=== PATIENT | male | born 1970 ===

== ENCOUNTER → 2020-05-20 10:34 | Outpatient (REF) | payer OTHER, SELFPAY ==
--- NOTE | 2020-05-20 10:36 | CA_ITS ---
Transthoracic Echocardiogram Patient (Last, First, Middle): Carlos Trujillo A Gender: Male Date of : 1970 Age: 50 Procedure Date: 05/20/2020 Procedure Type: Transthoracic Echocardiogram Location: OP Height: 160.02 cm Weight: 63.5 kg BSA: 1.66 m2 Heart Rate: bpm BP: 122 / 92 mmHg Environmental Restoration Planner: [place] Referring MD: Trevon Diez MD Symptoms: E78.00 - Pure hypercholesterolemia, unspecified Study Quality: Fair ECG Rhythm: Sinus Conclusions: - The left ventricular systolic function is normal. The visually estimated ejection fraction is between 55-60%. - No obvious valvular pathology seen on this study. Findings Left Ventricle Normal left ventricular cavity size. There is normal left ventricular wall thickness. The left ventricular systolic function is normal. The visually estimated ejection fraction is between 55-60%. There is no evidence of regional wall motion abnormalities. Diastolic function is normal for age. Right Ventricle Normal right ventricular cavity size and systolic function. Atria Both atria are normal in size. Aortic Valve There is a normal trileaflet aortic valve. There is no aortic valve stenosis. There is no aortic valve regurgitation. Mitral Valve The mitral valve appears normal. There is trace mitral valve regurgitation. There is no mitral valve stenosis. Pulmonic Valve The pulmonic valve was not well visualized. Tricuspid Valve Normal tricuspid valve structure. There is trace tricuspid valve regurgitation. The pulmonary artery systolic pressure is normal. Great Vessels The aortic annulus, sinuses of valsalva, and asc aorta are normal in size. Venous The inferior vena cava is normal in size and collapses greater than 50% with inspiration. Pericardium/Pleural There is no evidence of pericardial effusion. Prior Study Comparison No prior study available for comparison. Recommendations, Care & Conclusions No obvious valvular pathology seen on this study. Measurements M-Mode Liner Measurements Normals - Women/Men AOV Cusps: 2.30 1.5-2.6 cm/m2 2D Linear Measurements IVSd: 0.82 0.6-0.9/0.6-1.0 cm LVIDd: 4.33 3.9-5.3/4.2-5.9 cm LVIDd Index: 2.61 2.4-3.2/2.2-3.1 cm/m2 LVIDs: 2.97 2.0-3.6 cm LVPWd: 0.85 0.7-1.1 cm Ao Root: 2.60 2.1-3.5 cm LA Diam: 2.60 2.7-3.8/3.0-4.0 cm LAIDs Index: 1.57 1.5-2.3 cm/m2 LV Mass: 140.55 67-162/88-224 g LV Mass Index: 84.67 43-95/49-115 g/m2 LVOT Diam: 1.90 3.0+(-)1.3 cm 2D Systolic Function EF 4C: 58.60 >55% EF 2C: 62.00 >55% EF BiP: 59.90 >55% Mitral Valve MV Pk E: 0.78 MV PK A: 0.75 MV Decel Time: 224.00 E/A: 1.00 E'Lateral: 8.92 E'Medial: 7.29 E/E' Med: 10.80 E/E' Lat: 8.80 PHT: 66.00 MVA PHT: 3.33 Decel [place]: 3.53 Aortic Valve AoV Pk Compa: 1.18 AoV Pk Grad: 6.00 LVOT LVOT Pk Compa: 0.94 LVOT Mn Compa: 0.67 LVOT VTI: 0.19 LVOT Pk Grad: 4.00 LVOT Mn Grad: 2.00 LVOT Diam: 1.90 LVOT Area: 2.84 Diastolic Function MV Pk E: 0.78 MV Pk A: 0.75 E/A: 1.00 E'Medial: 7.29 E/E' Med: 10.80 E' Laterial: 8.92 E/E' Lat: 8.80 Great Vessels Aorta Ao Root-2D: 2.60 2.0-3.7 cm Ao Asc: 2.70 2.1-3.4 cm Ao Arch: 2.50 Pulmonary Valve PV Pk Compa: 0.81 Peak PV Grad: 3.00 Updated in Other Vendor System with Status of Final Warner Ribera MD electronically signed on 05/20/2020 2:05:52 PM with status of Final
== END ==
LOC: HO.CARD 10:34
PROVIDERS: PCP Internal Medicine; Visit Provider Internal Medicine
DX: E78.00 Pure hypercholesterolemia, unspecified (principal)
CPT/HCPCS: 93306

== ENCOUNTER 2021-05-09 08:06 | Outpatient (REF) | payer OTHER, SELFPAY ==
[2021-05-09 08:34] LABS: MANUAL DIFF FLAG NO
[2021-05-09 09:08] LABS: Basophils Percent Auto 0.4 % (0-2); Eosinophils Absolute Auto 0.1 X10*3/uL (0.0-0.4); Eosinophils Percent Auto 1.3 % (0-4); Hematocrit 46.5 % (42.0-52.0); Hemoglobin 15.6 g/dl (14.0-18.0); Imm Gran Abs Auto 0.01 X10*3/uL (0.00-0.03); Imm Gran Pct Auto 0.2 % (0.0-0.4); Lymphocytes Absolute Auto 1.9 X10*3/uL (1.2-4.9); Lymphocytes Percent Auto 35.2 % (20-40); Mean Corpuscular HGB Conc 33.5 g/dl (31.0-36.0); Mean Corpuscular Hemoglobin 29.9 pg (27.0-33.0); Mean Corpuscular Volume 89.3 fL (80.0-98.0); Mean Platelet Volume 11.6 fL (9.4-12.4); Monocytes Absolute Auto 0.8 X10*3/uL (0.1-1.2); Monocytes Percent Auto 14.2 % (2-11); Neutrophils Absolute Auto 2.6 x10*3/uL (2.0-8.3); Neutrophils Percent Auto 48.7 % (45-73); Platelet Count 189 X10*3/uL (160-400); Red Blood Count 5.21 X10*6/uL (4.60-5.80); Red Cell Distribution Width 11.9 % (11.0-16.0); White Blood Count 5.3 X10*3/uL (4.8-10.8)
[2021-05-09 09:35] LABS: Alanine Aminotransferase 30 U/L (0-40); Albumin Level 4.5 g/dL (3.5-5.0); Alkaline Phosphatase 86 U/L (39-117); Anion Gap 10 (12-20); Aspartate Amino Transferase 30 U/L (5-37); Bilirubin Total 0.8 mg/dL (0.0-1.0); Blood Urea Nitrogen 21 mg/dL (9-16); Calcium 9.8 mg/dL (8.4-10.2); Carbon Dioxide 29 mmol/L (22-29); Chloride 105 mmol/L (96-108); Cholesterol 270 mg/dL; Estimated Glomerular Filt Rate > 60; Glucose Random 96 mg/dL (60-115); HDL Cholesterol 48 mg/dL; LDL Cholesterol Calculated 193 mg/dl; Potassium 4.7 mmol/L (3.3-5.1); Sodium 139 mmol/L (135-145); Triglycerides 146 mg/dL
[2021-05-09 09:58] LABS: Free T4 (Free Thyroxine) 0.83 ng/dL (0.71-1.85); Prostate Specific Antigen Scr 0.47 ng/mL (<0.05-4.0); Thyroid Stimulating Hormone 1.07 uIU/mL (0.32-4.0); Vitamin D 25-OH Total 38.5 ng/mL (>30)
[2021-05-09 10:37] LABS: Folate > 20.0 ng/mL (> or = 4.0); Vitamin B12 703 pg/mL (200-900)
[2021-05-10 06:32] LABS: Follicle Stimulating Hormone 4.7 mIU/mL (1.6-8.0); Lutenizing Hormone 3.6 mIU/mL (1.5-9.3); Prolactin 5.7 ng/mL (2.0-18.0)
[2021-05-17 12:56] LABS: Testosterone, Total 800 ng/dL (250-1100)
== END 2021-05-09 08:07 | disposition home or self-care (01) ==
LOC: HO.LAB 08:06
PROVIDERS: PCP Internal Medicine; Visit Provider Internal Medicine
DX: E78.00 Pure hypercholesterolemia, unspecified (principal); M81.0 Age-related osteoporosis without current pathological fracture; Z12.5 Encounter for screening for malignant neoplasm of prostate
CPT/HCPCS: 36415; 80053; 80061; 82306; 82607; 82746; 83001; 83002; 84146; 84153; 84403; 84439; 84443; 85025

== ENCOUNTER 2021-06-03 09:41 | Outpatient (REF) | payer OTHER, SELFPAY ==
[2021-06-06 11:42] LABS: Mumps Virus IgM Antibody <1:20 titer
== END 2021-06-03 09:42 | disposition home or self-care (01) ==
LOC: HO.LAB 09:41
PROVIDERS: PCP Internal Medicine; Visit Provider Nurse Practitioner Family
DX: R22.0 Localized swelling, mass and lump, head (principal)
CPT/HCPCS: 36415; 86735

== ENCOUNTER 2023-04-28 12:33 | Outpatient (AMB) | payer OTHER, SELFPAY ==
[2023-04-28 12:32] VITALS: BP 132/90; PULSE 68; O2SAT 97; BMI 26.4
--- NOTE | 2023-04-28 12:32 | A.OFFPC_ITS ---
Vital Signs 04/28/23 12:32 04/28/23 12:43 Height 5 ft 3 in Weight 149 lb 0.4 oz BMI 26.4 BP 132/90 H 130/90 H Blood Pressure Location Lt brachial Lt brachial Position Sitting Sitting Pulse 68 Pulse Source Pulse Oximeter Pulse Oximetry (%) 97 Oxygen Delivery Method Room Air Intake Visit Reasons: Physical Property Field Adjuster Required: No Allergies No Known Allergies Allergy (Verified 04/28/23 12:33) Medication List - Last Reconciled 04/28/23 by Trevon Diez MD cholecalciferol (vitamin D3) 50 mcg PO DAILY magnesium 200 mg PO DAILY multivitamin 1 tab PO DAILY pterostilbene 100 mg PO .QD sildenafil (Viagra) 50 mg PO DAILY PRN 30 days valacyclovir 2,000 mg PO B.i.d. or as directed; 4 days Tobacco use date assessed: 04/28/23 Dental Screening Dental Screen Date: 04/28/23 Did you have a dental visit in the last 12 months?: Yes Did you have a dental problem in the last 6 months where you did not have access to dental care?: No Was dental information given to patient?: Patient has dentist HPI Physical HPI Details 53-year-old male with a history of osteo porosis hypercholesterolemia coming in for an annual physical [facility] Medical History Hypercholesterolemia Nose fracture Surgical History Ankle fracture, right H/O left inguinal hernia repair Family History Father Melanoma Myocardial infarct Maternal Grandfather Myocardial infarct Social History (Updated 04/28/23 @ 12:51 by Trevon Diez MD) Housing: House Alcohol intake: current Comment: 2 days weekend 5-6 a day Patient Tobacco Use Status: Never used Tobacco e-Cigarette/Vaping Use: Never Used Second Hand Smoke Exposure: No Current occupational status: employed Cognitive needs: No Hearing needs: No Vision needs: No Questionnaire PHQ-9 Over the last 2 weeks, how often have you been bothered by any of the following problems? 1. Little interest or pleasure in doing things: not at all 2. Feeling down, depressed, or hopeless: not at all 3. Trouble falling or staying asleep, or sleeping too much: not at all 4. Feeling tired or having little energy: not at all 5. Poor appetite or overeating: not at all 6. Feeling bad about yourself - or that you are a failure or have let yourself or your family down: not at all 7. Trouble concentrating on things, such as reading the newspaper or watching television: not at all 8. Moving or speaking so slowly that other people could have noticed. Or the opposite - being so fidgety or restless that you have been moving around a lot more than usual: not at all 9. Thoughts that you would be better off or of hurting yourself in some way: not at all Total score: 0 Depression Screening Interpretation: Negative Depression Screening Done: Yes Source: Developed by Drs. Fantasma Barone, Kyara Caballero, Jusitn Murray and colleagues, with an educational genesis from [employer]. Thrive Questionnaire Date Thrive assessed: 04/28/23 AUDIT C Alcohol Use Questionnaire (AUDIT-C) 1. How often do you have a drink containing alcohol?: 2-3 times a week 2. How many drinks containing alcohol do you have on a typical day when you are drinking?: 5 or 6 3. How often do you have six or more drinks on one occasion?: Never Total Score: 5 Score Reviewed/Action Taken: Yes LORRAINE-7 AMB Questionnaire LORRAINE-7 Date LORRAINE - 7 assessed: 04/28/23 Feeling nervous, anxious, or on edge: 0 = Not at all Not being able to stop or control worryin = Not at all Worrying too much about different things: 0 = Not at all Trouble relaxin = Not at all Being so restless that it is hard to sit still: 0 = Not at all Becoming easily annoyed or irritable: 0 = Not at all Feeling afraid as if something awful might happen: 0 = Not at all Total LORRAINE-7 score (0-4 normal; 5-9 mild; 10-14 moderate; 15-21 severe): 0 Source: Developed by Drs. Fantasma Barone, Kyara Caballero, Justin Murray and colleagues, with an educational genesis from [employer]. Review of Systems Const Denies poor appetite and Denies weakness Eyes Denies no additional complaints ENT Reports Normal hearing present, Denies dizziness, Denies nasal congestion, Denies tinnitus and Denies sore throat Card Denies chest pain, Denies syncope, Denies rapid heart rate and Denies dyspnea Resp Denies cough and Denies dyspnea GI Denies change in stool character, Reports constipation, Denies diarrhea, Denies nausea and Denies vomiting Denies dysuria and Denies urinary frequency Neuro Reports Normal hearing present, Denies confusion, Denies dizziness, Denies syncope and Denies weakness Psych Denies confusion Physical exam (Primary Care) Vital Signs: Oxygen Delivery Method Room Air 04/28/23 12:32 BMI result Body Mass Index 26.4 Tobacco/Smoking Status: Tobacco use Status Tobacco use date assessed 04/20/22 04/20/22 12:15 Patient Tobacco Use Status Never used Tobacco 04/20/22 11:37 e-Cigarette/Vaping Use Never Used 04/20/22 11:37 Depression Screening Interpretation: Negative Thrive Assessment: Date of Thrive Assessment Date Thrive assessed 04/20/22 04/20/22 12:15 Const General: No confusion Orientation/consciousness: No confusion HENMT Head: Yes normocephalic Ears: external ears normal and TM's normal bilaterally Face and sinus: Yes normal facial exam Mouth: moist mucous membranes Throat: Yes tonsils normal Eyes Conjunctivae: conjunctivae normal Pupils: Equal, round and reactive pupils present and Pupil accommodation reflex normal Direct Ophthalmoscopy: normal light reflex Neck Neck: No lymphadenopathy Thyroid: Thyroid normal Chest Chest palpation & inspection: normal inspection of the chest Resp Effort & Inspection: normal respiratory effort and no audible wheezes Auscultation: clear to auscultation bilaterally, no crackles, no wheezes and lung sounds not diminished Cardio Rate: regular rate Rhythm: regular rhythm Peripheral pulses: radial pulses present and dorsalis pedis present GI Other: guaiac neg prostate normal Palpation (GI): no masses Auscultation: normal bowel sounds and normoactive bowel sounds Male General Exam: Yes normal external exam Skin General skin exam: no rashes or lesions noted Rashes: no rashes Neuro General: No confusion Cranial nerves: Yes Equal, round and reactive pupils present and Yes Normal hearing present Cognition (Neuro): normal cognition Gait exam (Neuro): Normal gait present Motor exam (neuro): 5/5 motor strength present throughout Deep tendon reflexes (DTR's): Right brachioradialis reflex intensity grade: 2+, Left brachioradialis reflex intensity grade: 2+, Right patellar reflex intensity grade: 2+ and Left patellar reflex intensity grade: 2+ Extrem General: No edema Assessment and Plan Assessment & Plan (1) Annual physical exam: Code(s): Z00.00 - Encounter for general adult medical examination without abnormal findings (2) Osteoporosis: Code(s): M81.0 - Age-related osteoporosis without current pathological fracture Plan: Discussion about doing bone density to follow-up (3) Colon cancer screening: Code(s): Z12.11 - Encounter for screening for malignant neoplasm of colon Plan: Discussion about colon cancer screening . Cologuard sent (4) Hypercholesterolemia: Code(s): E78.00 - Pure hypercholesterolemia, unspecified Plan: Avoid fried foods, chicken skin, eggs, butter margarine, pastries and meat. Be it pork or beef they have a lot of cholesterol LDL goal of less than 130 and triglyceride of less than 150 (5) Blood pressure elevated without history of HTN: Code(s): R03.0 - Elevated blood-pressure reading, without diagnosis of hypertension Plan: monitor BP and record. Discussed my concerns about the blood pressure being elevated(diastolic) advised to monitor and record. Low-salt diet and continue to be active Orders: Orders XR DEXA axial skeleton Today M81.0 - Age-related osteoporosis without current pathological fracture Referrals Cologuard Test Z12.11 - Encounter for screening for malignant neoplasm of colon Coding Level of Care Code Est Pt Prev Care 40-64y([id number]) Diagnoses Annual physical exam Z00.00 Osteoporosis M81.0 Colon cancer screening Z12.11 Hypercholesterolemia E78.00 Blood pressure elevated without history of HTN R03.0 Additional Codes PHQ-9 - 65861 - PHQ-9 Billing: ([id number])
[2023-04-28 12:43] VITALS: BP 130/90
== END 2023-04-28 13:11 | disposition home or self-care (01) ==
PROVIDERS: PCP Internal Medicine; Visit Provider Internal Medicine
DX: Z00.00 Encounter for general adult medical examination without abnormal findings (principal); M81.0 Age-related osteoporosis without current pathological fracture; Z12.11 Encounter for screening for malignant neoplasm of colon; E78.00 Pure hypercholesterolemia, unspecified; R03.0 Elevated blood-pressure reading, without diagnosis of hypertension
CPT/HCPCS: 99396

== ENCOUNTER 2023-05-14 07:16 | Outpatient (REF) | payer OTHER, SELFPAY ==
[2023-05-14 07:48] LABS: MANUAL DIFF FLAG NO
[2023-05-14 08:22] LABS: Basophils Percent Auto 0.5 % (0-2); Eosinophils Absolute Auto 0.1 X10*3/uL (0.0-0.4); Eosinophils Percent Auto 2.3 % (0-4); Hematocrit 46.7 % (42.0-52.0); Hemoglobin 15.8 g/dl (14.0-18.0); Imm Gran Abs Auto 0.02 X10*3/uL (0.00-0.03); Imm Gran Pct Auto 0.3 % (0.0-0.4); Lymphocytes Absolute Auto 1.7 X10*3/uL (1.2-4.9); Lymphocytes Percent Auto 27.4 % (20-40); Mean Corpuscular HGB Conc 33.8 g/dl (31.0-36.0); Mean Corpuscular Hemoglobin 29.5 pg (27.0-33.0); Mean Corpuscular Volume 87.1 fL (80.0-98.0); Mean Platelet Volume 11.6 fL (9.4-12.4); Monocytes Absolute Auto 0.9 X10*3/uL (0.1-1.2); Monocytes Percent Auto 14.6 % (2-11); Neutrophils Absolute Auto 3.3 x10*3/uL (2.0-8.3); Neutrophils Percent Auto 54.9 % (45-73); Platelet Count 213 X10*3/uL (160-400); Red Blood Count 5.36 X10*6/uL (4.60-5.80)
[2023-05-14 08:57] LABS: Alanine Aminotransferase 28 U/L (0-40); Albumin Level 4.3 g/dL (3.5-5.0); Alkaline Phosphatase 85 U/L (39-117); Anion Gap 13 (12-20); Aspartate Amino Transferase 30 U/L (5-37); Bilirubin Total 0.5 mg/dL (0.0-1.0); Blood Urea Nitrogen 24 mg/dL (9-16); Calcium 9.5 mg/dL (8.4-10.2); Carbon Dioxide 27 mmol/L (22-29); Chloride 103 mmol/L (96-108); Cholesterol 269 mg/dL (<200); Estimated Glomerular Filt Rate > 60; Glucose Random 104 mg/dL (60-115); HDL Cholesterol 53 mg/dL (>40); LDL Cholesterol Calculated 190 mg/dL (<100); Magnesium 2.2 mg/dL (1.6-2.6); Potassium 4.4 mmol/L (3.3-5.1); Sodium 139 mmol/L (135-145); Total Protein 7.9 g/dL (6.5-8.0); Triglycerides 133 mg/dL (<150)
[2023-05-14 09:18] LABS: Free T4 (Free Thyroxine) 0.77 ng/dL (0.71-1.85); Prostate Specific Antigen Scr 0.54 ng/mL (<0.05-4.0); Vitamin B12 749 pg/mL (200-900); Vitamin D 25-OH Total 45.5 ng/mL (>30)
== END 2023-05-14 07:17 | disposition home or self-care (01) ==
LOC: HO.LAB 07:16
PROVIDERS: PCP Internal Medicine; Visit Provider Internal Medicine
DX: Z12.5 Encounter for screening for malignant neoplasm of prostate (principal); E78.00 Pure hypercholesterolemia, unspecified
CPT/HCPCS: 36415; 80053; 80061; 82306; 82607; 82746; 83735; 84153; 84439; 84443; 85025

== ENCOUNTER 2023-05-17 10:58 | Outpatient (REF) | payer OTHER, SELFPAY ==
--- NOTE | ~2023-05-17 | MM_ITS ---
EXAMINATION: BONE DENSITOMETRY CLINICAL INDICATION: Age-related osteoporosis without current pathological fracture. COMPARISON: Previous BD dated 12/29/2017 and baseline BD dated 12/12/2006. TECHNIQUE: Using a [employer] DXA System (software version: 13.1) manufactured by [employer], dual-energy x-ray absorptiometry was performed of the lumbar spine and left hip. The images are of good technical quality. Summary results are attached. FINDINGS: LEFT FEMUR, NECK: Current: BMD 0.823 g/cm2, Z-score -0.9, T-score -1.9, osteopenia. Prior: BMD 0.848 g/cm2. Baseline: BMD 0.852 g/cm2. LEFT FEMUR, TOTAL: Current: BMD 0.905 g/cm2, Z-score -0.8, T-score -1.4, osteopenia, 4.4% decrease from previous, 1.5% decrease from baseline (<5% change is not significant). Prior: BMD 0.947 g/cm2. Baseline: BMD 0.919 g/cm2. AP SPINE L1-L4: Current: BMD 0.907 g/cm2, Z-score -2.0, T-score -2.6, osteoporosis, 6.8% decrease from previous, 7.2% decrease from baseline (<5% change is not significant). Prior: BMD 0.973 g/cm2. Baseline: BMD 0.977 g/cm2. IDENTIFIED RISK FACTORS: History of fracture (adult). HISTORY OF FRACTURE: Other. MEDICATIONS: Multivitamin, vitamin D. MM/XR DEXA axial skeleton IMPRESSION: 1. DIAGNOSIS: Osteoporosis based on the lowest T-score value of -2.6 in the lumbar spine applying World Health Organization criteria. 2. 10-YEAR FRACTURE RISK PREDICTION, FRAX: According to the guidelines, FRAX calculation should only be performed on patients in the osteopenia bone density category. Therefore, FRAX was not performed on this patient. 3. Treatment Recommendations: NOF guidelines recommend consideration for treatment in postmenopausal women and men age 50 and older presenting with the following: -A hip or vertebral (clinical or morphometric) fracture. -T-score less than or equal to -2.5 at the femoral neck or spine after appropriate evaluation to exclude secondary causes. -Low bone mass at the hip or spine and a 10-year fracture probability by FRAX of greater than or equal to 3% for hip fracture or greater than or equal to 20% for major osteoporotic fracture based on the [place] adapted WHO algorithm. 4. Other Recommendations: All treatment decisions require clinical judgment and consideration of individual patient factors, including patient preferences, comorbidities, previous drug use, risk factors not captured in the FRAX model (e.g. frailty, falls, vitamin D deficiency, increased bone turnover, interval significant decline in bone density) and possible under or overestimation of fracture risk by FRAX. Additional medical evaluation for secondary cause of low bone mineral density may be appropriate. FUTURE SCAN RECOMMENDATION: People with diagnosed cases of osteoporosis or at high risk for fracture should have regular bone mineral density tests. For patients eligible for Medicare, routine testing is allowed once every 2 years. The testing frequency can be increased to one year for patients who have rapidly progressing disease, those who are receiving or discontinuing medical therapy to restore bone mass, or have additional risk factors.
== END 2023-05-17 10:59 | disposition home or self-care (01) ==
LOC: HO.MAMMO 10:58
PROVIDERS: PCP Internal Medicine; Visit Provider Internal Medicine
DX: Z13.820 Encounter for screening for osteoporosis (principal); M81.0 Age-related osteoporosis without current pathological fracture
CPT/HCPCS: 77080

== ENCOUNTER 2023-08-03 11:00 | Outpatient (AMB) | payer OTHER, SELFPAY ==
[2023-08-03 11:02] VITALS: BP 128/78; PULSE 67; O2SAT 98; BMI 25.9
--- NOTE | 2023-08-03 11:02 | A.OFFPC_ITS ---
Vital Signs 08/03/23 11:02 Height 5 ft 3 in Weight 146 lb BMI 25.9 BP 128/78 Blood Pressure Location Lt brachial Position Sitting Pulse 67 Pulse Source Pulse Oximeter Pulse Oximetry (%) 98 Oxygen Delivery Method Room Air Intake Visit Reasons: Elevated BP Allergies simvastatin Adverse Reaction (Intermediate, Verified 08/03/23 11:04) myalgia Tobacco use date assessed: 08/03/23 Dental Screening Dental Screen Date: 08/03/23 Did you have a dental visit in the last 12 months?: Yes Did you have a dental problem in the last 6 months where you did not have access to dental care?: No Was dental information given to patient?: Patient has dentist HPI Elevated BP HPI Details 53-year-old male with a history of osteo porosis hypercholesterolemia last seen in April 2023. Noted to have an elevated blood pressure is here for follow-up. Cologuard testing advised done in 06/08/2023-bone density done May 2023 showing osteoporosis with 6.8 decrease in the spine 4% decrease left femur PFSH Medical History (Updated 08/03/23 @ 11:14 by Treovn Diez MD) Colon cancer screening Nose fracture Hypercholesterolemia Surgical History Ankle fracture, right H/O left inguinal hernia repair Family History (Updated 08/03/23 @ 11:05 by Vidhya Romero CMA) Father Melanoma Myocardial infarct Maternal Grandfather Myocardial infarct Social History (Updated 04/28/23 @ 12:51 by Trevon Diez MD) Housing: House Alcohol intake: current Comment: 2 days weekend 5-6 a day Patient Tobacco Use Status: Never used Tobacco e-Cigarette/Vaping Use: Never Used Second Hand Smoke Exposure: No Current occupational status: employed Cognitive needs: No Hearing needs: No Vision needs: No Questionnaire PHQ-9 Over the last 2 weeks, how often have you been bothered by any of the following problems? 1. Little interest or pleasure in doing things: not at all 2. Feeling down, depressed, or hopeless: not at all 3. Trouble falling or staying asleep, or sleeping too much: not at all 4. Feeling tired or having little energy: not at all 5. Poor appetite or overeating: not at all 6. Feeling bad about yourself - or that you are a failure or have let yourself or your family down: not at all 7. Trouble concentrating on things, such as reading the newspaper or watching television: not at all 8. Moving or speaking so slowly that other people could have noticed. Or the opposite - being so fidgety or restless that you have been moving around a lot more than usual: not at all 9. Thoughts that you would be better off or of hurting yourself in some way: not at all Total score: 0 Depression Screening Interpretation: Negative Depression Screening Done: Yes Source: Developed by Drs. Fantasma Barone, Kyara Caballero, Justin Murray and colleagues, with an educational genesis from [email or web address]. Thrive Questionnaire Date Thrive assessed: 04/28/23 AUDIT C Alcohol Use Questionnaire (AUDIT-C) 1. How often do you have a drink containing alcohol?: 2-3 times a week 2. How many drinks containing alcohol do you have on a typical day when you are drinking?: 5 or 6 3. How often do you have six or more drinks on one occasion?: Never Total Score: 5 Score Reviewed/Action Taken: Yes LORRAINE-7 AMB Questionnaire LORRAINE-7 Date LORRAINE - 7 assessed: 04/28/23 Source: Developed by Drs. Fantasma Barone, Kyara Caballero, Justin Murray and colleagues, with an educational genesis from [email or web address]. Physical exam (Primary Care) Vital Signs: Last Vital Signs Pulse 67 08/03/23 11:02 BP 128/78 08/03/23 11:02 Pulse Ox 98 08/03/23 11:02 Oxygen Delivery Method Room Air 08/03/23 11:02 BMI result Body Mass Index 25.9 Tobacco/Smoking Status: Tobacco use Status Tobacco use date assessed 08/03/23 08/03/23 11:06 Patient Tobacco Use Status Never used Tobacco 08/03/23 11:06 e-Cigarette/Vaping Use Never Used 08/03/23 11:06 PHQ-9: PHQ-9 Score PHQ-9: Total score 0 08/03/23 11:06 Depression Screening Interpretation: Negative Thrive Assessment: Date of Thrive Assessment Date Thrive assessed 04/28/23 08/03/23 11:06 Const General: alert; No acute distress Eyes Conjunctivae: conjunctivae normal Resp Auscultation: clear to auscultation bilaterally Cardio Rate: regular rate Rhythm: regular rhythm GI Inspection: Yes normal to inspection Extrem General: Yes normal to inspection and No edema Assessment and Plan Assessment & Plan (1) Blood pressure elevated without history of HTN: Code(s): R03.0 - Elevated blood-pressure reading, without diagnosis of hypertension Plan: Retest blood pressure within normal limits (2) Impaired glucose tolerance: Code(s): R73.02 - Impaired glucose tolerance (oral) Plan: Decrease the amount of carbohydrate intake, pasta, bread, rice and potatoes are all sugar and that is aside from all the sweet stuff, remember that fruits are good but they are Sweet also. (3) Hypercholesterolemia: Code(s): E78.00 - Pure hypercholesterolemia, unspecified Plan: Avoid fried foods, chicken skin, eggs, butter margarine, pastries and meat. Be it pork or beef they have a lot of cholesterol LDL goal of less than 130 and triglyceride of less than 150. Patient can not tolerate simvastatin. Discussed on trying a different cholesterol medication and retesting in 3 months. (4) Osteoporosis: Comment: May 2023 Code(s): M81.0 - Age-related osteoporosis without current pathological fracture Plan: Discussed concerns about osteoporosis patient will be seeing endocrinology. Orders: Orders Lipid Panel Today E78.00 - Pure hypercholesterolemia, unspecified Hemoglobin A1c Today R73.02 - Impaired glucose tolerance (oral) Comprehensive Met. Panel Today E78.00 - Pure hypercholesterolemia, unspecified Parathyroid Hormone Intact 3 Months M81.0 - Age-related osteoporosis without current pathological fracture Calcium, Ionized 3 Months M81.0 - Age-related osteoporosis without current pathological fracture Medications: New rosuvastatin 5 mg PO DAILY 30 tabs 3RF E78.00 - Pure hypercholesterolemia, unspecified Coding Level of Care Code Est Pt Level 4 (46424) Diagnoses Blood pressure elevated without history of HTN R03.0 Impaired glucose tolerance R73.02 Hypercholesterolemia E78.00 Osteoporosis M81.0 Additional Codes PHQ-9 - 70113 - PHQ-9 Billing: ([id number])
== END 2023-08-03 11:28 | disposition home or self-care (01) ==
PROVIDERS: PCP Internal Medicine; Visit Provider Internal Medicine
DX: R03.0 Elevated blood-pressure reading, without diagnosis of hypertension (principal); R73.02 Impaired glucose tolerance (oral); E78.00 Pure hypercholesterolemia, unspecified; M81.0 Age-related osteoporosis without current pathological fracture
CPT/HCPCS: 99214

== ENCOUNTER 2023-09-13 11:16 | Outpatient (AMB) | payer OTHER, SELFPAY ==
[2023-09-13 11:18] VITALS: BP 128/68; PULSE 59; O2SAT 97; BMI 25.3
--- NOTE | 2023-09-13 11:18 | A.OFFPC_ITS ---
Vital Signs 09/13/23 11:18 Height 5 ft 3 in Weight 64.864 kg BMI 25.3 BP 128/68 Blood Pressure Location Lt brachial Position Sitting Pulse 59 Pulse Source Pulse Oximeter Pulse Oximetry (%) 97 Oxygen Delivery Method Room Air Intake Visit Reasons: Sinus Issues Allergies simvastatin Adverse Reaction (Intermediate, Verified 09/13/23 11:18) myalgia Tobacco use date assessed: 08/03/23 Dental Screening Dental Screen Date: 08/03/23 HPI Sinus Issues HPI Details 53-year-old male with a history of impai red glucose tolerance osteoporosis hypercholesterolemia. Last seen in 08/22/2023 noted to have an elevated blood pressure. Patient is here for an acute problem. 3 days am abd pain epigastric - no radiation. continuous, no fevers, no b/b sx.- no flank pain PFSH Medical History (Updated 09/13/23 @ 11:50 by Trevon Diez MD) Colon cancer screening Nose fracture Hypercholesterolemia Surgical History Ankle fracture, right H/O left inguinal hernia repair Family History (Updated 08/03/23 @ 11:05 by Vidhya Romero CMA) Father Melanoma Myocardial infarct Maternal Grandfather Myocardial infarct Social History (Updated 04/28/23 @ 12:51 by Trevon Diez MD) Housing: House Alcohol intake: current Comment: 2 days weekend 5-6 a day Patient Tobacco Use Status: Never used Tobacco e-Cigarette/Vaping Use: Never Used Second Hand Smoke Exposure: No Current occupational status: employed Cognitive needs: No Hearing needs: No Vision needs: No Questionnaire PHQ-9 Over the last 2 weeks, how often have you been bothered by any of the following problems? 1. Little interest or pleasure in doing things: not at all 2. Feeling down, depressed, or hopeless: not at all 3. Trouble falling or staying asleep, or sleeping too much: not at all 4. Feeling tired or having little energy: not at all 5. Poor appetite or overeating: not at all 6. Feeling bad about yourself - or that you are a failure or have let yourself or your family down: not at all 7. Trouble concentrating on things, such as reading the newspaper or watching television: not at all 8. Moving or speaking so slowly that other people could have noticed. Or the opposite - being so fidgety or restless that you have been moving around a lot more than usual: not at all 9. Thoughts that you would be better off or of hurting yourself in some way: not at all Total score: 0 Depression Screening Interpretation: Negative Depression Screening Done: Yes Source: Developed by Drs. Fantasma Barone, Kyara Caballero, Justin Murray and colleagues, with an educational genesis from [employer]. Thrive Questionnaire Date Thrive assessed: 04/28/23 AUDIT C Alcohol Use Questionnaire (AUDIT-C) 1. How often do you have a drink containing alcohol?: 2-3 times a week 2. How many drinks containing alcohol do you have on a typical day when you are drinking?: 5 or 6 3. How often do you have six or more drinks on one occasion?: Never Total Score: 5 Score Reviewed/Action Taken: Yes LORRAINE-7 AMB Questionnaire LORRAINE-7 Date LORRAINE - 7 assessed: 04/28/23 Source: Developed by Drs. Fantasma Barone, Kyara Caballero, Justin Murray and colleagues, with an educational genesis from [employer]. Physical exam (Primary Care) Vital Signs: Last Vital Signs Pulse 59 09/13/23 11:18 BP 128/68 09/13/23 11:18 Pulse Ox 97 09/13/23 11:18 Oxygen Delivery Method Room Air 09/13/23 11:18 BMI result Body Mass Index 25.3 Tobacco/Smoking Status: Tobacco use Status Tobacco use date assessed 08/03/23 09/13/23 11:22 Patient Tobacco Use Status Never used Tobacco 09/13/23 11:22 e-Cigarette/Vaping Use Never Used 09/13/23 11:22 PHQ-9: PHQ-9 Score PHQ-9: Total score 0 09/13/23 11:43 Depression Screening Interpretation: Negative Thrive Assessment: Date of Thrive Assessment Date Thrive assessed 04/28/23 09/13/23 11:22 Const General: alert; No acute distress Eyes Conjunctivae: conjunctivae normal Resp Auscultation: clear to auscultation bilaterally Cardio Rate: regular rate Rhythm: regular rhythm GI Other: vague LLQ pain with mild tenderness, mild rebound Extrem General: Yes normal to inspection and No edema Results AMB Urinalysis, Automated UA Leukoctes 0 Mavis/uL Last Edit by Vidhya Romero, [facility] on 09/13/23 12:00 UA Nitrite Negative Last Edit by Vidhya Romero, [facility] on 09/13/23 12:00 UA Urobilinogen 0.2 mg/dL Last Edit by Vidhya Romero, [facility] on 09/13/23 12:00 UA Protein 0 mg/dL Last Edit by Vidhya Romero, [facility] on 09/13/23 12:00 UA pH 6.0 Last Edit by Vidhya Romero, [facility] on 09/13/23 12:00 UA Blood 0 Marlon/uL Last Edit by Vidhya Romero, [facility] on 09/13/23 12:00 UA Specific [place] 1.025 Last Edit by Vidhya Romero, APRN on 09/13/23 12:00 UA Ketone Negative Last Edit by Vidhya Romero, [facility] on 09/13/23 12:00 UA Bilirubin 0 mg/dL Last Edit by Vidhya Romero, [facility] on 09/13/23 12:00 UA Glucose 0 mg/dL Last Edit by Vidhya Romero, [facility] on 09/13/23 12:00 Assessment and Plan Assessment & Plan (1) LLQ abdominal pain: Code(s): R10.32 - Left lower quadrant pain Plan: Urinalysis test negative for any blood. Discussed about diverticulitis treatment outpatient keep well hydrated if it is getting better no further treatment needed. If the pain is getting worse to call and send message and will send in antibiotic treatment for diverticulitis. Orders: Orders AMB Urinalysis Automated Today R10.32 - Left lower quadrant pain, Z13.9 - Encounter for screening, unspecified Coding Level of Care Code Est Pt Level 3 (76932) Diagnoses LLQ abdominal pain R10.32 Additional Codes PHQ-9 - 57009 - PHQ-9 Billing: ([id number])
== END 2023-09-13 11:57 | disposition home or self-care (01) ==
PROVIDERS: PCP Internal Medicine; Visit Provider Internal Medicine
DX: R10.32 Left lower quadrant pain (principal)
CPT/HCPCS: 81003; 99213

== ENCOUNTER 2023-12-15 07:12 | Outpatient (REF) | payer OTHER, SELFPAY ==
[2023-12-15 07:57] LABS: Estimated Average Glucose 111 mg/dL; Hemoglobin A1c % 5.5 % (<6.0)
[2023-12-15 08:02] LABS: Alanine Aminotransferase 23 U/L (0-40); Albumin Level 4.6 g/dL (3.5-5.0); Alkaline Phosphatase 73 U/L (39-117); Anion Gap 13 (12-20); Aspartate Amino Transferase 29 U/L (5-37); Bilirubin Total 0.6 mg/dL (0.0-1.0); Blood Urea Nitrogen 19 mg/dL (9-16); Calcium 9.9 mg/dL (8.4-10.2); Carbon Dioxide 27 mmol/L (22-29); Chloride 104 mmol/L (96-108); Cholesterol 287 mg/dL (<200); Estimated Glomerular Filt Rate > 60; Glucose Random 93 mg/dL (60-115); HDL Cholesterol 59 mg/dL (>40); LDL Cholesterol Calculated 206 mg/dL (<100); Potassium 4.5 mmol/L (3.3-5.1); Sodium 139 mmol/L (135-145); Total Protein 8.1 g/dL (6.5-8.0); Triglycerides 111 mg/dL (<150)
[2023-12-15 08:14] LABS: Parathyroid Hormone Intact 47.4 pg/mL (8.7-77.1)
[2023-12-19 18:58] LABS: Calcium, Ionized 5.1 mg/dL (4.7-5.5)
== END 2023-12-15 07:13 | disposition home or self-care (01) ==
LOC: HO.LAB 07:12
PROVIDERS: PCP Internal Medicine; Visit Provider Internal Medicine
DX: M81.0 Age-related osteoporosis without current pathological fracture (principal); R73.02 Impaired glucose tolerance (oral); E78.00 Pure hypercholesterolemia, unspecified
CPT/HCPCS: 36415; 80053; 80061; 82330; 83036; 83970

== ENCOUNTER 2023-12-20 08:42 | Outpatient (AMB) | payer OTHER, SELFPAY ==
[2023-12-20 08:44] VITALS: BP 132/82; PULSE 58; O2SAT 98; BMI 25.7
--- NOTE | 2023-12-20 08:44 | A.OFFPC_ITS ---
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 Bone density is up-to-date. Cologuard test is up-to-date June 2023. Review of the notes in December 05 had an ultrasound done showing mild fatty infiltration of the liver no masses or cholelithiasis. Received a note also 08/31/2023 regarding osteoporosis of the lumbar spine osteopenia of the left hip calcium and vitamin-D supplements workup requested. has not started med . PFSH Medical History (Updated 12/08/23 @ 18:46 by Trevon Diez MD) Colon cancer screening Nose fracture Hypercholesterolemia Surgical History Ankle fracture, right H/O left inguinal hernia repair Family History (Updated 08/03/23 @ 11:05 by Vidhya Romero CMA) Father Melanoma Myocardial infarct Maternal Grandfather Myocardial infarct Social History (Updated 04/28/23 @ 12:51 by Trevon Diez MD) Housing: House Alcohol intake: current Comment: 2 days weekend 5-6 a day Patient Tobacco Use Status: Never used Tobacco Tobacco use type: Cigarette e-Cigarette/Vaping Use: Never Used Second Hand Smoke Exposure: No Current occupational status: employed Cognitive needs: No Hearing needs: No Vision needs: No Questionnaire PHQ-9 Over the last 2 weeks, how often have you been bothered by any of the following problems? 1. Little interest or pleasure in doing things: not at all 2. Feeling down, depressed, or hopeless: not at all 3. Trouble falling or staying asleep, or sleeping too much: not at all 4. Feeling tired or having little energy: not at all 5. Poor appetite or overeating: not at all 6. Feeling bad about yourself - or that you are a failure or have let yourself or your family down: not at all 7. Trouble concentrating on things, such as reading the newspaper or watching television: not at all 8. Moving or speaking so slowly that other people could have noticed. Or the opposite - being so fidgety or restless that you have been moving around a lot more than usual: not at all 9. Thoughts that you would be better off or of hurting yourself in some way: not at all Total score: 0 Depression Screening Interpretation: Negative Depression Screening Done: Yes Source: Developed by Drs. Fantasma Barone, Kyara Caballero, Justin Murray and colleagues, with an educational genesis from [employer]. Thrive Questionnaire Date Thrive assessed: 04/28/23 Are you currently unemployed and looking for a job?: No AUDIT C Alcohol Use Questionnaire (AUDIT-C) 1. How often do you have a drink containing alcohol?: 2-3 times a week 2. How many drinks containing alcohol do you have on a typical day when you are drinking?: 5 or 6 3. How often do you have six or more drinks on one occasion?: Never Total Score: 5 Score Reviewed/Action Taken: Yes LORRAINE-7 AMB Questionnaire LORRAINE-7 Date LORRAINE - 7 assessed: 04/28/23 Source: Developed by Drs. Fantasma Barone, Kyara Caballero, Justin Murray and colleagues, with an educational genesis from [employer]. Physical exam (Primary Care) Vital Signs: Last Vital Signs Pulse 58 12/20/23 08:44 BP 132/82 12/20/23 08:44 Pulse Ox 98 12/20/23 08:44 Oxygen Delivery Method Room Air 12/20/23 08:44 BMI result Body Mass Index 25.7 Tobacco/Smoking Status: Tobacco use Status Tobacco use date assessed 08/03/23 12/20/23 08:49 Patient Tobacco Use Status Never used Tobacco 12/20/23 08:49 Tobacco use type Cigarette 12/20/23 08:49 e-Cigarette/Vaping Use Never Used 12/20/23 08:49 PHQ-9: PHQ-9 Score PHQ-9: Total score 0 12/20/23 08:49 Depression Screening Interpretation: Negative Thrive Assessment: Date of Thrive Assessment Date Thrive assessed 04/28/23 12/20/23 08:49 Const General: alert; No acute distress Eyes Conjunctivae: conjunctivae normal Resp Auscultation: clear to auscultation bilaterally Cardio Rate: regular rate Rhythm: regular rhythm GI Inspection: Yes normal to inspection Extrem General: Yes normal to inspection and No edema Assessment and Plan Assessment & Plan (1) Fatty liver: Comment: December 2023 Code(s): K76.0 - Fatty (change of) liver, not elsewhere classified Plan: Low-fat diet and exercise (2) Impaired glucose tolerance: Code(s): R73.02 - Impaired glucose tolerance (oral) Plan: Decrease the amount of carbohydrate intake, pasta, bread, rice and potatoes are all sugar and that is aside from all the sweet stuff, remember that fruits are good but they are Sweet also. (3) Hypercholesterolemia: Code(s): E78.00 - Pure hypercholesterolemia, unspecified Plan: Avoid fried foods, chicken skin, eggs, butter margarine, pastries and meat. Be it pork or beef they have a lot of cholesterol LDL goal of less than 130 and triglyceride of less than 150. has not taken med yet and taking berberine and bergamot (4) Osteoporosis: Comment: May 2023 Code(s): M81.0 - Age-related osteoporosis without current pathological fracture Plan: Patient has seen Endocrinology continue with calcium and vitamin-D Orders: Orders Lipid Panel 3 Months E78.00 - Pure hypercholesterolemia, unspecified Comprehensive Met. Panel 3 Months E78.00 - Pure hypercholesterolemia, unsp ecified Coding Level of Care Code Est Pt Level 4 (90497) Diagnoses Fatty liver K76.0 Impaired glucose tolerance R73.02 Hypercholesterolemia E78.00 Osteoporosis M81.0 Additional Codes PHQ-9 - 83148 - PHQ-9 Billing: ([id number])
== END 2023-12-20 09:27 | disposition home or self-care (01) ==
PROVIDERS: PCP Internal Medicine; Visit Provider Internal Medicine
DX: K76.0 Fatty (change of) liver, not elsewhere classified (principal); R73.02 Impaired glucose tolerance (oral); E78.00 Pure hypercholesterolemia, unspecified; M81.0 Age-related osteoporosis without current pathological fracture

== ENCOUNTER → 2023-12-20 08:42 | Outpatient (BNVA) | payer OTHER, SELFPAY | PROVIDERS: PCP Internal Medicine; Visit Provider Internal Medicine | DX: K76.0 Fatty (change of) liver, not elsewhere classified (principal); R73.02 Impaired glucose tolerance (oral); E78.00 Pure hypercholesterolemia, unspecified; M81.0 Age-related osteoporosis without current pathological fracture | CPT/HCPCS: 96127 ==

== ENCOUNTER 2024-02-14 15:31 | Outpatient (AMB) | payer OTHER, SELFPAY ==
--- NOTE | 2024-02-14 15:36 | A.OFFPC_ITS ---
Vital Signs 3 02/14/24 15:37 Height 5 ft 3 in Weight 144 lb BMI 25.5 BP 120/76 Blood Pressure Location Lt brachial Position Sitting Pulse 75 Pulse Source Pulse Oximeter Pulse Oximetry (%) 96 Oxygen Delivery Method Room Air Intake Visit Reasons: Lump on back Intake Note: firm tumor-like swelling in the middle of back for over a month Cap Sewer Required: No Allergies simvastatin Adverse Reaction (Intermediate, Verified 02/14/24 15:37) myalgia Tobacco use date assessed: 08/03/23 Dental Screening Dental Screen Date: 08/03/23 HPI Lump on back 2 HPI0 Details 53-year-old male with past medical histo ry of hypercholesterolemia, impaired glucose tolerance, fatty liver disease last seen by Dr. Diez December 2023 coming in for acute problem. Today he tells us he has had a lump on his back for the last month. Denies any injury or trauma to that area. The lump has not changed or grown and is not painful, itchy or bothersome. He also mentions he has not been taking his Rosuvastatin but rather working on lifestyle modification for cholesterol management. [facility]LY [facility], [facility] Medical History Colon cancer screening Nose fracture Hypercholesterolemia Surgical History Ankle fracture, right H/O left inguinal hernia repair Family History Father Melanoma Myocardial infarct Maternal Grandfather Myocardial infarct Social History Housing: House Alcohol intake: current Comment: 2 days weekend 5-6 a day Patient Tobacco Use Status: Never used Tobacco Tobacco use type: Cigarette e-Cigarette/Vaping Use: Never Used Second Hand Smoke Exposure: No Current occupational status: employed Cognitive needs: No Hearing needs: No Vision needs: No Questionnaire Thrive Questionnaire Date Thrive assessed: 04/28/23 Are you currently unemployed and looking for a job?: No AUDIT C Alcohol Use Questionnaire (AUDIT-C) 1. How often do you have a drink containing alcohol?: 2-3 times a week 2. How many drinks containing alcohol do you have on a typical day when you are drinking?: 5 or 6 3. How often do you have six or more drinks on one occasion?: Never Total Score: 5 Score Reviewed/Action Taken: Yes LORRAINE-7 AMB Questionnaire LORRAINE-7 Date LORRAINE - 7 assessed: 04/28/23 Source: Developed by Drs. Fantasma Barone, Kyara Caballero, Justin Murray and colleagues, with an educational genesis from [email or web address]. Review of Systems Const Denies body aches, Denies chills and Denies fever(s) Eyes Reports no additional complaints ENT Denies dizziness Card Denies chest pain, Denies lightheadedness and Denies dyspnea Resp Denies dyspnea Reports no additional complaints Musc Reports no additional complaints and Denies abnormal gait Skin/Breast Reports system reviewed and no additional complaints, except as documented and Reports as per HPI Neuro Denies abnormal gait and Denies dizziness Psych Reports no additional complaints Physical exam (Primary Care) Vital Signs: Oxygen Delivery Method Room Air 02/14/24 15:37 Tobacco/Smoking Status: Tobacco use Status Tobacco use date assessed 08/03/23 02/14/24 15:37 Patient Tobacco Use Status Never used Tobacco 02/14/24 15:37 Tobacco use type Cigarette 02/14/24 15:37 e-Cigarette/Vaping Use Never Used 02/14/24 15:37 Thrive Assessment: Date of Thrive Assessment Date Thrive assessed 04/28/23 02/14/24 15:37 Const General: cooperative, healthy appearing, comfortable and no acute distress Orientation/consciousness: patient oriented x3 HENMT Head: Yes normocephalic Ears: hearing grossly normal bilaterally General nose exam: Normal external nose present Eyes General: appearance normal, both eyes and all related structures Conjunctivae: conjunctivae normal Neck Neck: Yes full ROM and Yes no lymphadenopathy Resp Effort & Inspection: normal respiratory effort Auscultation: clear to auscultation bilaterally, no crackles, no rales, no rhonchi and no wheezes Cardio Rate: regular rate Rhythm: regular rhythm Back/Spine/Pelvis Other: 1 cm soft, nontender, not fluctuant, mobile and without overlying skin changes on middle of the back Back/spine/pelvis image: 2 1. mass of the back Skin General skin exam: no rashes or lesions noted Neuro General: patient oriented x3 Gait exam (Neuro): Normal gait present Extrem General: Yes normal to inspection, Yes full ROM and No edema Psych Affect: normal affect Attitude: cooperative Insight: Good insight present (Psych) Judgement: Good judgement present (Psych) Coding Level of Care Code Est Pt Level 3 (20914) Diagnoses Mass on back R22.2 Impaired glucose tolerance R73.02 Hypercholesterolemia E78.00 Assessment & Plan Assessment & Plan (1) Mass on back: Code(s): R22.2 - Localized swelling, mass and lump, trunk Category: Medical Plan: mass on back has been present and unchanged for the last month. The mass is soft, nontender, not fluctuant, mobile and without overlying skin changes. Presentation is most consistent with lipoma however without biopsy we cannot make definitive diagnosis. Referral placed to general surgery for further evaluation. (2) Impaired glucose tolerance: Code(s): R73.02 - Impaired glucose tolerance (oral) Category: Medical Plan: Decrease the amount of carbohydrates such as pasta, bread, rice, and potatoes and limit the amount of sweets. Although fruits are generally healthy they should be eaten in moderation as they are still high in sugar. (3) Hypercholesterolemia: Code(s): E78.00 - Pure hypercholesterolemia, unspecified Category: Medical Plan: Avoid foods that are high in cholesterol such as red meat, fried foods, eggs and baked goods. Triglyceride goal of less than 150 and LDL goal of less than 100. Not present in the medication. Reminded patient about blood work. Plan This note was constructed using voice recognition software. While every effort has been made to ensure accuracy and time clock mechanic, still areas may have been included sometimes these areas may affect the content or meeting of the given symptoms. Total time spent caring for the patient today was 20 minutes. This includes time spent before the visit reviewing the chart, time spent during the visit, and time spent after the visit and documentation.
[2024-02-14 15:37] VITALS: BP 120/76; PULSE 75; O2SAT 96; BMI 25.5
== END 2024-02-14 15:51 | disposition home or self-care (01) ==
PROVIDERS: PCP Internal Medicine
DX: R22.2 Localized swelling, mass and lump, trunk (principal); R73.02 Impaired glucose tolerance (oral); E78.00 Pure hypercholesterolemia, unspecified

== ENCOUNTER → 2024-02-14 15:31 | Outpatient (BNVA) | payer OTHER, SELFPAY | PROVIDERS: PCP Internal Medicine ==

== ENCOUNTER 2024-03-13 07:48 | Outpatient (REF) | payer OTHER, SELFPAY ==
[2024-03-13 08:25] LABS: MANUAL DIFF FLAG NO
[2024-03-13 08:26] LABS: Basophils Percent Auto 0.5 % (0-2); Eosinophils Absolute Auto 0.1 X10*3/uL (0.0-0.4); Eosinophils Percent Auto 2.4 % (0-4); Hematocrit 45.7 % (42.0-52.0); Hemoglobin 15.7 g/dl (14.0-18.0); Imm Gran Abs Auto 0.02 X10*3/uL (0.00-0.03); Imm Gran Pct Auto 0.3 % (0.0-0.4); Lymphocytes Absolute Auto 1.8 X10*3/uL (1.2-4.9); Mean Corpuscular HGB Conc 34.4 g/dl (31.0-36.0); Mean Corpuscular Hemoglobin 30.7 pg (27.0-33.0); Mean Corpuscular Volume 89.3 fL (80.0-98.0); Mean Platelet Volume 10.5 fL (9.4-12.4); Monocytes Percent Auto 16.2 % (2-11); Neutrophils Absolute Auto 2.9 x10*3/uL (2.0-8.3); Neutrophils Percent Auto 49.6 % (45-73); Platelet Count 216 X10*3/uL (160-400); Red Blood Count 5.12 X10*6/uL (4.60-5.80); Red Cell Distribution Width 12.2 % (11.0-16.0); White Blood Count 5.9 X10*3/uL (4.8-10.8)
[2024-03-13 08:52] LABS: Alanine Aminotransferase 35 U/L (0-40); Albumin Level 4.5 g/dL (3.5-5.0); Alkaline Phosphatase 74 U/L (39-117); Anion Gap 11 (12-20); Aspartate Amino Transferase 37 U/L (5-37); Bilirubin Total 0.4 mg/dL (0.0-1.0); Blood Urea Nitrogen 21 mg/dL (9-16); Calcium 9.6 mg/dL (8.4-10.2); Carbon Dioxide 28 mmol/L (22-29); Chloride 105 mmol/L (96-108); Estimated Glomerular Filt Rate > 60; Glucose Random 100 mg/dL (60-115); Iron 98 mcg/dL (45-160); Percent Iron Saturation 32 % (15-50); Potassium 4.9 mmol/L (3.3-5.1); Sodium 139 mmol/L (135-145); Total Iron Binding Capacity 311 mcg/dL (228-428); Total Protein 8.1 g/dL (6.5-8.0); Unsaturated Iron Binding 213 ug/dL
[2024-03-13 09:06] LABS: Ferritin 520 ng/mL (20-250)
[2024-03-16 08:27] LABS: Cholesterol 277 mg/dL (<200); HDL Cholesterol 64 mg/dL (>40); LDL Cholesterol Calculated 185 mg/dL (<100); Triglycerides 140 mg/dL (<150)
== END 2024-03-13 07:49 | disposition home or self-care (01) ==
LOC: HO.LAB 07:48
PROVIDERS: Absent Provider Physician Assistant; PCP Internal Medicine; Visit Provider Internal Medicine
DX: R79.89 Other specified abnormal findings of blood chemistry (principal)
CPT/HCPCS: 36415; 80053; 80061; 82728; 83540; 85025

== ENCOUNTER 2024-04-06 09:58 | Outpatient (AMB) | payer OTHER, SELFPAY ==
--- NOTE | 2024-04-06 09:59 | MHC.PC.OV ---
Vital Signs 04/06/24 10:00 Height 5 ft 3 in Weight 144 lb 4 oz BMI 25.5 BP 138/90 H Blood Pressure Location Lt brachial Position Sitting Pulse 77 Pulse Source Pulse Oximeter Pulse Oximetry (%) 98 Oxygen Delivery Method Room Air Intake Visit Reasons: cholesterol Allergies simvastatin Adverse Reaction (Intermediate, Verified 04/06/24 10:03) myalgia Tobacco use date assessed: 04/06/24 Dental Screening Dental Screen Date: 04/06/24 Did you have a dental visit in the last 12 months?: Yes Did you have a dental problem in the last 6 months where you did not have access to dental care?: No Was dental information given to patient?: Patient has dentist HPI cholesterol HPI Details The patient is a 54-year-old male presenting with elevated ferritin levels. The initial concern for elevated ferritin led to hematology oncology consultation, which attributed the elevation to alcohol use. The patient's ferritin levels have been consistently over 500, significantly higher than the normal range up to 250. The evaluation ruled out hemochromatosis with negative follow-up testing. The patient reports efforts to reduce alcohol intake, which he believes should contribute to lower ferritin levels. Additional noteworthy problems include hypercholesterolemia, with a previous cholesterol level of 206, which has improved to 185 but remains above the target of 130. The patient is not on cholesterol medications and is making dietary changes to reduce cholesterol intake. Dietary changes include reduced consumption of red meat and fried foods, with current emphasis on chicken, salmon, and egg whites. The patient's fasting blood glucose was noted to be 100, slightly above the desired range of 70 to 99, indicating impaired fasting glucose. Furthermore, the patient reports a family history of osteoporosis and is concerned about bone health, following detection of osteoporosis through a previous evaluation. His parathyroid and testosterone levels are reportedly normal, and he has plans to visit the [facility] for specialized bone health evaluation. [facility] Medical History Colon cancer screening Nose fracture Hypercholesterolemia Surgical History Ankle fracture, right H/O left inguinal hernia repair Family History Father Melanoma Myocardial infarct Maternal Grandfather Myocardial infarct Social History Housing: House Alcohol intake: current Comment: 2 days weekend 5-6 a day Patient Tobacco Use Status: Never used Tobacco Tobacco use type: Cigarette e-Cigarette/Vaping Use: Never Used Second Hand Smoke Exposure: No Current occupational status: employed Cognitive needs: No Hearing needs: No Vision needs: No Questionnaire PHQ-9 Over the last 2 weeks, how often have you been bothered by any of the following problems? 1. Little interest or pleasure in doing things: not at all 2. Feeling down, depressed, or hopeless: not at all 3. Trouble falling or staying asleep, or sleeping too much: not at all 4. Feeling tired or having little energy: not at all 5. Poor appetite or overeating: not at all 6. Feeling bad about yourself - or that you are a failure or have let yourself or your family down: not at all 7. Trouble concentrating on things, such as reading the newspaper or watching television: not at all 8. Moving or speaking so slowly that other people could have noticed. Or the opposite - being so fidgety or restless that you have been moving around a lot more than usual: not at all 9. Thoughts that you would be better off or of hurting yourself in some way: not at all Total score: 0 Depression Screening Interpretation: Negative Depression Screening Done: Yes Source: Developed by Drs. Fantasma Barone, Kyara Caballero, Justin Murray and colleagues, with an educational genesis from [employer]. Thrive Questionnaire Date Thrive assessed: 04/06/24 I am a: Patient What is your living situation today?: I have a steady place to live Within the past 12 months, did the food you bought not last and you didn't have the money to get more?: Never true Within the past 12 months, did you worry whether your food would run out before you got money to buy more?: Never true THRIVE Score: 0 AUDIT C Alcohol Use Questionnaire (AUDIT-C) 1. How often do you have a drink containing alcohol?: 4 or more times a week 2. How many drinks containing alcohol do you have on a typical day when you are drinking?: 1 or 2 3. How often do you have six or more drinks on one occasion?: Monthly Total Score: 6 LORRAINE-7 AMB Questionnaire LORRAINE-7 Date LORRAINE - 7 assessed: 04/06/24 Feeling nervous, anxious, or on edge: 0 = Not at all Not being able to stop or control worryin = Not at all Worrying too much about different things: 0 = Not at all Trouble relaxin = Not at all Being so restless that it is hard to sit still: 0 = Not at all Becoming easily annoyed or irritable: 0 = Not at all Feeling afraid as if something awful might happen: 0 = Not at all Total LORRAINE-7 score (0-4 normal; 5-9 mild; 10-14 moderate; 15-21 severe): 0 Source: Developed by Drs. Fantasma Barone, Kyara Caballero, Justin Murray and colleagues, with an educational genesis from [employer]. Physical exam (Primary Care) Vital Signs: Last Vital Signs Pulse 77 04/06/24 10:00 BP 138/90 H 04/06/24 10:00 Pulse Ox 98 04/06/24 10:00 Oxygen Delivery Method Room Air 04/06/24 10:00 BMI result Body Mass Index 25.5 Tobacco/Smoking Status: Tobacco use Status Tobacco use date assessed 04/06/24 04/06/24 10:06 Patient Tobacco Use Status Never used Tobacco 04/06/24 10:00 Tobacco use type Cigarette 04/06/24 10:00 e-Cigarette/Vaping Use Never Used 04/06/24 10:00 PHQ-9: PHQ-9 Score PHQ-9: Total score 0 04/06/24 10:06 Depression Screening Interpretation: Negative Thrive Assessment: Date of Thrive Assessment Date Thrive assessed 04/06/24 04/06/24 10:06 Const General: alert; No acute distress Eyes Conjunctivae: conjunctivae normal Resp Auscultation: clear to auscultation bilaterally Cardio Rate: regular rate Rhythm: regular rhythm GI Inspection: Yes normal to inspection Extrem General: Yes normal to inspection and No edema Coding Level of Care Code Est Pt Level 4 (91029) Diagnoses Fatty liver K76.0 Elevated ferritin R79.89 Impaired glucose tolerance R73.02 Hypercholesterolemia E78.00 Osteoporosis M81.0 Assessment & Plan Assessment & Plan (1) Fatty liver: Comment: December 2023 Code(s): K76.0 - Fatty (change of) liver, not elsewhere classified Category: Medical Plan: Low-fat diet and exercise (2) Elevated ferritin: Comment: scondary to alcohol use Code(s): R79.89 - Other specified abnormal findings of blood chemistry Category: Medical Plan: Patient has met with Hematology-Oncology and accounted high ferritin from alcohol intake. (3) Impaired glucose tolerance: Code(s): R73.02 - Impaired glucose tolerance (oral) Category: Medical Plan: Decrease the amount of carbohydrate intake, pasta, bread, rice and potatoes are all sugar and that is aside from all the sweet stuff, remember that fruits are good but they are Sweet also. (4) Hypercholesterolemia: Code(s): E78.00 - Pure hypercholesterolemia, unspecified Category: Medical Plan: Avoid fried foods, chicken skin, eggs, butter margarine, pastries and meat. Be it pork or beef they have a lot of cholesterol LDL goal of less than 130 and triglyceride of less than 150. (5) Osteoporosis: Comment: May 2023 Code(s): M81.0 - Age-related osteoporosis without current pathological fracture Category: Medical Plan: Test done on account of height loss. Patient's testosterone has been checked before and this was normal. Will refer to endocrinology Plan - Alcohol Use Disorder: Continue efforts to limit alcohol consumption. Monitor ferritin levels periodically to assess the effect of reduced alcohol intake. - Hypercholesterolemia: Maintain dietary modifications to limit cholesterol intake. Encourage the use of egg whites instead of whole eggs, reduce red meat consumption, and avoid fried foods. Monitor cholesterol levels in subsequent follow-ups. - Hyperglycemia Impaired Fasting Glucose): Advise dietary modifications to maintain normoglycemia. Continue monitoring of fasting blood glucose levels. - Osteoporosis: Ensure adequate calcium and vitamin D intake. Follow-up with endocrinology for further evaluation of bone density and possible interventions. Patient to consider visiting [facility] for advanced care options. - Elevated Ferritin: No immediate follow-up tests indicated as per current findings. Continue monitoring and reevaluate as necessary based onhematology recommendations. Orders: Orders Testosterone, Total 6 Months M81.0 - Age-related osteoporosis without current pathological fracture Complete Blood Count Auto Diff 6 Months M81.0 - Age-related osteoporosis without current pathological fracture Ferritin 6 Months M81.0 - Age-related osteoporosis without current pathological fracture IRON PROFILE 6 Months M81.0 - Age-related osteoporosis without current pathological fracture Vitamin B12 and Folate 6 Months M81.0 - Age-related osteoporosis without current pathological fracture Vitamin D 25-OH Total 6 Months M81.0 - Age-related osteoporosis without current pathological fracture Thyroid Stimulating Hormone 6 Months M81.0 - Age-related osteoporosis without current pathological fracture Free T4 (Free Thyroxine) 6 Months M81.0 - Age-related osteoporosis without current pathological fracture Hemoglobin A1c 6 Months R73.02 - Impaired glucose tolerance (oral) Comprehensive Met. Panel 6 Months M81.0 - Age-related osteoporosis without current pathological fracture Reticulocyte Count 6 Months M81.0 - Age-related osteoporosis without current pathological fracture Lipid Panel 6 Months E78.00 - Pure hypercholesterolemia, unspecified, M81.0 - Age-related osteoporosis without current pathological fracture Prostate Specific Antigen Scr 6 Months R73.02 - Impaired glucose tolerance (oral) Cortisol Random 6 Months M81.0 - Age-related osteoporosis without current pathological fracture Referrals Endocrinology Referral M81.0 - Age-related osteoporosis without current pathological fracture
[2024-04-06 10:00] VITALS: BP 138/90; PULSE 77; O2SAT 98; BMI 25.5
== END 2024-04-06 10:56 | disposition home or self-care (01) ==
PROVIDERS: PCP Internal Medicine; Visit Provider Internal Medicine
DX: K76.0 Fatty (change of) liver, not elsewhere classified (principal); R79.89 Other specified abnormal findings of blood chemistry; R73.02 Impaired glucose tolerance (oral); E78.00 Pure hypercholesterolemia, unspecified; M81.0 Age-related osteoporosis without current pathological fracture

== ENCOUNTER → 2024-04-06 09:58 | Outpatient (BNVA) | payer OTHER, SELFPAY | PROVIDERS: PCP Internal Medicine; Visit Provider Internal Medicine ==

== ENCOUNTER 2024-04-18 10:45 | Outpatient (AMB) | payer OTHER, SELFPAY ==
--- NOTE | 2024-04-18 10:48 | MHC.OFFVIS ---
Vital Signs 04/18/24 10:51 Height 5 ft 1.49 in Weight 142 lb 6.698 oz BMI 26.5 BP 108/82 Blood Pressure Location Lt brachial Position Sitting Pulse 76 Pulse Source Pulse Oximeter Intake Visit Reasons: Age-related osteoporosis without current pathologi Intake Note: New patient internally referred by PCP for Age-related Osteoporosis. Firebrick Layer Required: No Accompanied by: Self / Same As Patient Allergies simvastatin Adverse Reaction (Intermediate, Verified 04/18/24 10:51) myalgia Medication List - Last Reconciled 04/18/24 by Fantasma Ku MD cholecalciferol (vitamin D3) 50 mcg PO DAILY magnesium 200 mg PO DAILY multivitamin 1 tab PO DAILY pterostilbene 100 mg PO .QD sildenafil (Viagra) 50 mg PO DAILY PRN 30 days valacyclovir 2,000 mg PO B.i.d. or as directed; 4 days HPI Comments Details: 54 YO male with is seen in consultation at the request of PCP for Osteoporosis. First diagnosed in recently. Osteopenia in past . Has appt at [facility] in [place] . Not Received treatment in the past No History of pathologic fracture or ONJ. Has several servings of dietary calcium per day in the form of milk . Takes Calcium supplement ? mg daily in divided doses. Takes 2000 IU of Vitamin D daily. Denies ever using PPI, anticoagulant, antiepileptic or glucocorticoid medication. Does weight bearing exercise 2 days per week in the form of weight bearing lifting . Fracture history: N Height loss: Y Denies history of Kidney stones: Has family history of Osteoporosis in mother but no hip fracture. UTD on dental cleanings and sees dentist every 6 months. No planned upcoming dental work or extractions. DXA dated 05/17/23 :[facility] SPINE L1-L4: Current: BMD 0.907 g/cm2, Z-score -2.0, T-score -2.6, osteoporosis, 6.8% decrease from previous, 7.2% decrease from baseline (<5% change is not significant). Prior: BMD 0.973 g/cm2. Baseline: BMD 0.977 g/cm2. IDENTIFIED RISK FACTORS: History of fracture (adult). HISTORY OF FRACTURE: Other. MEDICATIONS: Multivitamin, vitamin D. MM/XR DEXA axial skeleton IMPRESSION: 1. DIAGNOSIS: Osteoporosis based on the lowest T-score value of -2.6 in the lumbar spine applying World Health Organization criteria. Labs: PFSH Medical History Colon cancer screening Nose fracture Hypercholesterolemia Surgical History Ankle fracture, right H/O left inguinal hernia repair Family History Father Melanoma Myocardial infarct Maternal Grandfather Myocardial infarct Social History Housing: House Alcohol intake: current Comment: 2 days weekend 5-6 a day Patient Tobacco Use Status: Never used Tobacco Tobacco use type: Cigarette e-Cigarette/Vaping Use: Never Used Second Hand Smoke Exposure: No Current occupational status: employed Cognitive needs: No Hearing needs: No Vision needs: No Physical Exam Vital Signs: BMI result Body Mass Index 28.3 Assessment & Plan Assessment & Plan (1) Osteoporosis: Comment: May 2023 Code(s): M81.0 - Age-related osteoporosis without current pathological fracture Category: Medical Plan: This is a 54-year-old white male with a history of osteoporosis. Partial secondary workup has been performed including testosterone level which was normal and thyroid function studies Plan is to complete the secondary workup by checking a phosphorus level, 24 hour urine for calcium and creatinine, SPEP, urine immunofixation. We will ensure 1200 mg of calcium per day and vitamin D3 2000 IU per day. Assuming secondary workup is negative, could consider use of an anti resorptive agent like an oral or intravenous bisphosphonate or Prolia. However, patient is going to [facility] for an evaluation of his bone density and may repeat the bone density there along with TBS and VF a which can be additional parameters on when to court of appeals judge whether or not to initiate pharmacologic therapy Orders: Orders Immunofixation, Random Urine Today M81.0 - Age-related osteoporosis without current pathological fracture Phosphorus Today M81.0 - Age-related osteoporosis without current pathological fracture Calcium, 24 Hr Ur Today M81.0 - Age-related osteoporosis without current pathological fracture Creatinine, 24 Hr Group Today M81.0 - Age-related osteoporosis without current pathological fracture Protein Electrophoresis, Serum Today M81.0 - Age-related osteoporosis without current pathological fracture Coding Level of Care Code New Pt Level 4 (99971) Diagnoses Osteoporosis M81.0
[2024-04-18 10:51] VITALS: BP 108/82; PULSE 76; BMI 26.5
== END 2024-04-18 11:44 | disposition home or self-care (01) ==
PROVIDERS: PCP Internal Medicine; Visit Provider Internal Medicine Endocrinology, Diabetes & Metabolism
DX: M81.0 Age-related osteoporosis without current pathological fracture (principal)
CPT/HCPCS: 99204

== ENCOUNTER 2024-07-19 08:57 | Outpatient (AMB) | payer OTHER, SELFPAY ==
[2024-07-19 09:05] VITALS: BP 120/78; PULSE 69; O2SAT 98; BMI 26.2
--- NOTE | 2024-07-19 09:05 | MHC.PC.OV ---
Vital Signs 07/19/24 09:05 Height 5 ft 1.49 in Weight 141 lb BMI 26.2 BP 120/78 Blood Pressure Location Lt brachial Position Sitting Pulse 69 Pulse Source Pulse Oximeter Pulse Oximetry (%) 98 Oxygen Delivery Method Room Air Intake Visit Reasons: Annual Exam Allergies simvastatin Adverse Reaction (Intermediate, Verified 07/19/24 09:06) myalgia Medication List - Last Reconciled 07/19/24 by Trevon Diez MD calcium carbonate 600 mg PO DAILY cholecalciferol (vitamin D3) 50 mcg PO DAILY magnesium 200 mg PO DAILY multivitamin 1 tab PO DAILY pterostilbene 100 mg PO .QD sildenafil (Viagra) 50 mg PO DAILY PRN 30 days valacyclovir 2,000 mg PO B.i.d. or as directed; 4 days Tobacco use date assessed: 04/06/24 Dental Screening Dental Screen Date: 04/06/24 HPI Annual Exam HPI Details 2 weeks ago was exercising - dizzy PFSH Medical History Colon cancer screening Nose fracture Hypercholesterolemia Surgical History Ankle fracture, right H/O left inguinal hernia repair Family History (Updated 07/19/24 @ 09:20 by Trevon Diez MD) Father Melanoma Myocardial infarct Maternal Grandfather Myocardial infarct Paternal Grandfather CVA (cerebral vascular accident) Social History (Updated 07/19/24 @ 09:21 by Trevon Diez MD) Housing: House Alcohol intake: current Comment: 2 days weekend 5-6 a day, 07/2024- 3 days week 2 drinks each Patient Tobacco Use Status: Never used Tobacco Tobacco use type: Cigarette e-Cigarette/Vaping Use: Never Used Second Hand Smoke Exposure: No Current occupational status: employed Cognitive needs: No Hearing needs: No Vision needs: No Questionnaire PHQ-9 Over the last 2 weeks, how often have you been bothered by any of the following problems? 1. Little interest or pleasure in doing things: not at all 2. Feeling down, depressed, or hopeless: not at all 3. Trouble falling or staying asleep, or sleeping too much: not at all 4. Feeling tired or having little energy: not at all 5. Poor appetite or overeating: not at all 6. Feeling bad about yourself - or that you are a failure or have let yourself or your family down: not at all 7. Trouble concentrating on things, such as reading the newspaper or watching television: not at all 8. Moving or speaking so slowly that other people could have noticed. Or the opposite - being so fidgety or restless that you have been moving around a lot more than usual: not at all 9. Thoughts that you would be better off or of hurting yourself in some way: not at all Total score: 0 Depression Screening Interpretation: Negative Depression Screening Done: Yes 02175 - PHQ-9 Billing: Yes Source: Developed by Drs. Fantasma Barone, Kyara Caballero, Justin Murray and colleagues, with an educational genesis from [employer] Thrive Questionnaire Date Thrive assessed: 07/19/24 I am a: Patient What is your living situation today?: I have a steady place to live Within the past 12 months, did the food you bought not last and you didn't have the money to get more?: Never true Within the past 12 months, did you worry whether your food would run out before you got money to buy more?: Never true Do you have trouble paying for medicines?: No Do you have trouble getting transportation to medical appointments?: No Do you have trouble paying your heating and electricity bill?: No Do you have trouble taking care of your child, family member or friend?: No Do you have trouble with day-to-day activities such as bathing, preparing meals, shopping, managing finances, etc.?: No Are you currently unemployed and looking for a job?: No Are you interested in more education?: No Please select the resources that you would like help with: None Currently or been in a relationship where the following occur: No concerns reported THRIVE Score: 0 AUDIT C Alcohol Use Questionnaire (AUDIT-C) 1. How often do you have a drink containing alcohol?: 2-3 times a week Total Score: 3 LORRAINE-7 AMB Questionnaire LORRAINE-7 Date LORRAINE - 7 assessed: 07/19/24 Feeling nervous, anxious, or on edge: 0 = Not at all Not being able to stop or control worryin = Not at all Worrying too much about different things: 0 = Not at all Trouble relaxin = Not at all Being so restless that it is hard to sit still: 0 = Not at all Becoming easily annoyed or irritable: 0 = Not at all Feeling afraid as if something awful might happen: 0 = Not at all Total LORRAINE-7 score (0-4 normal; 5-9 mild; 10-14 moderate; 15-21 severe): 0 Source: Developed by Drs. Fantasma Barone, Kyara Caballero, Justin Murray and colleagues, with an educational genesis from [employer]. LORRAINE-7 Assessment Billing LORRAINE-7 Assessment Tool: LORRAINE-7 Assessment 01623 Review of Systems Const Denies poor appetite and Denies weakness Eyes Denies no additional complaints ENT Reports Normal hearing present, Denies dizziness, Denies nasal congestion, Denies tinnitus and Denies sore throat Card Denies chest pain, Denies syncope, Denies rapid heart rate and Denies dyspnea Resp Denies cough and Denies dyspnea GI Denies change in stool character, Reports constipation, Denies diarrhea, Denies nausea and Denies vomiting Denies dysuria and Denies urinary frequency Neuro Reports Normal hearing present, Denies confusion, Denies dizziness, Denies syncope and Denies weakness Psych Denies confusion Physical exam (Primary Care) Vital Signs: Last Vital Signs Pulse 69 07/19/24 09:05 BP 120/78 07/19/24 09:05 Pulse Ox 98 07/19/24 09:05 Oxygen Delivery Method Room Air 07/19/24 09:05 BMI result Body Mass Index 26.2 Tobacco/Smoking Status: Tobacco use Status Tobacco use date assessed 04/06/24 07/19/24 09:11 Patient Tobacco Use Status Never used Tobacco 07/19/24 09:21 Tobacco use type Cigarette 07/19/24 09:21 e-Cigarette/Vaping Use Never Used 07/19/24 09:21 PHQ-9: PHQ-9 Score PHQ-9: Total score 0 07/19/24 09:11 Depression Screening Interpretation: Negative Thrive Assessment: Date of Thrive Assessment Date Thrive assessed 07/19/24 07/19/24 09:11 Currently or been in a relationship where the following occur: No concerns reported Const General: No confusion Orientation/consciousness: No confusion HENMT Head: Yes normocephalic Ears: external ears normal and TM's normal bilaterally Face and sinus: Yes normal facial exam Mouth: moist mucous membranes Throat: Yes tonsils normal Eyes Conjunctivae: conjunctivae normal Pupils: Equal, round and reactive pupils present and Pupil accommodation reflex normal Direct Ophthalmoscopy: normal light reflex Neck Neck: No lymphadenopathy Thyroid: Thyroid normal Chest Chest palpation & inspection: normal inspection of the chest Resp Effort & Inspection: normal respiratory effort and no audible wheezes Auscultation: clear to auscultation bilaterally, no crackles, no wheezes and lung sounds not diminished Cardio Rate: regular rate Rhythm: regular rhythm Peripheral pulses: radial pulses present and dorsalis pedis present GI Other: guaiac neg prostate n Palpation (GI): no masses Auscultation: normal bowel sounds and normoactive bowel sounds Male General Exam: Yes normal external exam Skin General skin exam: no rashes or lesions noted Rashes: no rashes Neuro General: No confusion Cranial nerves: Yes Equal, round and reactive pupils present and Yes Normal hearing present Cognition (Neuro): normal cognition Gait exam (Neuro): Normal gait present Motor exam (neuro): 5/5 motor strength present throughout Deep tendon reflexes (DTR's): Right brachioradialis reflex intensity grade: 2+, Left brachioradialis reflex intensity grade: 2+, Right patellar reflex intensity grade: 2+ and Left patellar reflex intensity grade: 2+ Extrem General: No edema Coding Level of Care Code Est Pt Prev Care 40-64y(27170) Diagnoses Annual physical exam Z00.00 Osteoporosis M81.0 Hypercholesterolemia E78.00 Impaired glucose tolerance R73.02 Fatty liver K76.0 Elevated ferritin R79.89 Additional Codes LORRAINE-7 Assessment Billing - LORRAINE-7 Assessment Tool: LORRAINE-7 Assessment 26308 ([id number]) PHQ-9 - 48654 - PHQ-9 Billing: Yes ([id number]) Assessment & Plan Assessment & Plan (1) Annual physical exam: Code(s): Z00.00 - Encounter for general adult medical examination without abnormal findings Category: Medical Plan: Patient is advised to eat healthy, keep well hydrated, keep active and have adequate sleep. (2) Osteoporosis: Comment: May 2023 Code(s): M81.0 - Age-related osteoporosis without current pathological fracture Category: Medical Plan: Patient has seen endocrinology and is going to another institution for further workup. Advised calcium and vitamin-D (3) Hypercholesterolemia: Code(s): E78.00 - Pure hypercholesterolemia, unspecified Category: Medical Plan: Avoid fried foods, chicken skin, eggs, butter margarine, pastries and meat. Be it pork or beef they have a lot of cholesterol LDL goal of less than 130 and triglyceride of less than 150. (4) Impaired glucose tolerance: Code(s): R73.02 - Impaired glucose tolerance (oral) Category: Medical Plan: Decrease the amount of carbohydrate intake, pasta, bread, rice and potatoes are all sugar and that is aside from all the sweet stuff, remember that fruits are good but they are Sweet also. (5) Fatty liver: Comment: December 2023 Code(s): K76.0 - Fatty (change of) liver, not elsewhere classified Category: Medical Plan: Low-fat diet and exercise (6) Elevated ferritin: Comment: scondary to alcohol use Code(s): R79.89 - Other specified abnormal findings of blood chemistry Category: Medical Plan: Patient has seen hematology oncology. Plan History of Present Illness The patient is a 54-year-old male presenting for wellness and physical examination. He has been previously diagnosed with osteoporosis, hypercholesterolemia, impaired glucose tolerance, and nonalcoholic fatty liver disease. He reported undergoing bone density tests as recently as May 2023 and has been adhering to calcium and vitamin D supplementation. He denies any pathologic fractures, and further evaluations like phosphorus level testing and serum protein electrophoresis were recommended. His last Cologuard test was in June 2023, and blood work done in March 2024 showed normal blood counts but elevated blood sugar levels and significantly elevated LDL cholesterol levels. The elevation in ferritin is under evaluation, likely associated with alcohol usage. The patient maintains a lifestyle involving regular exercise and a healthy diet since senior care and shows commitment to managing his hypercholesterolemia and glucose intolerance through dietary measures. Health Maintenance - Advised calcium intake of 1200 mg/day and vitamin D supplementation for osteoporosis - Recommended monitoring and managing LDL cholesterol levels to less than 130 mg/dL - Counselled on dietary changes and exercises for impaired glucose tolerance - Discussed avoidance of excessive alcohol consumption - Encouraged regular health screenings and routine health maintenance visits Social History - Retired and maintains an active lifestyle with regular exercise - Engages in dietary modifications post-senior care for better health - Reports social drinking, with about eight drinks per week over three days - Family history includes significant cardiac events - Has taken up lactate milk consumption to supplement calcium intake Review of Systems - Constitutional: Denies falls, reports weight loss since senior care - Neurological: Denies passing out or dizziness except post-exercise - Cardiovascular: Denies chest pain or shortness of breath - Gastrointestinal: Denies bowel movement issues - Genitourinary: Urinates once at night, denies other urinary issues - Respiratory: Denies waking up short of breath - Musculoskeletal: Reports regular exercise without limitations - Skin: Denies any new skin changes or rashes Physical Exam General: Cooperative, healthy appearing, comfortable, no acute distress and well developed Orientation: Patient oriented x3 Limitations: No limitations Head: Normal to inspection Ears: Hearing grossly normal bilaterally Nose: Normal external nose present Face and sinus: Normal facial exam Eyes: Appearance normal, both eyes and all related structures Neck: Normal visual inspection and Yes full ROM Respiratory: Normal respiratory effort and able to speak in complete sentences. Clear to auscultation bilaterally Cardiovascular: Regular rate and rhythm. Normal S1 and S2 GI: Normal to inspection. Soft to palpation and nontender Skin: No rashes or lesions noted Neuro: Patient oriented x3 Extremities: Normal to inspection Results - Labs: Elevated LDL cholesterol at 185 mg/dL, mildly elevated blood sugar at 100 mg/dL, ferritin level reported at 520 - Screening Tests: Cologuard test negative in June 2023 Plan The management strategy includes lifestyle modifications for hypercholesterolemia and glucose intolerance, including diet and exercise, with a focus on achieving an LDL cholesterol goal of less than 130 mg/dL. The patient will continue to use calcium and vitamin D supplements for osteoporosis management, and further testing such as phosphorus level and urinary calcium is recommended. Efforts to reduce alcohol consumption are advised considering the elevated ferritin levels. No additional therapies for nonalcoholic fatty liver disease were initiated. Continued monitoring and routine follow-ups remain essential. Patient was informed and verbally consented to the use of an ambient scribe for clinic note documentation during this visit. Discussion Notes I discussed the management of hypercholesterolemia, emphasizing the importance of maintaining LDL levels below 130 mg/dL through dietary changes and exercises. We reviewed osteoporosis care with calcium and vitamin D supplementation and considered bisphosphonates contingent upon test results. Given the patient's impaired glucose tolerance, I encouraged a low-fat diet and regular physical activity. The potential impact of alcohol use on ferritin levels was discussed, advising moderation. Routine screenings like Cologuard were noted as current. Options, benefits, and risks of interventions were clearly explained, with encouragement for ongoing health maintenance visits. Patient Instructions - Maintain a healthy diet and regular exercise routine to manage cholesterol and blood sugar levels. - Continue taking calcium and vitamin D supplements daily. - Monitor alcohol intake and aim to reduce consumption. - Schedule routine follow-up appointments for ongoing wellness assessments. - Stay hydrated and increase water consumption, especially before engaging in physical activities. - Consider scheduling a coronary calcium scan as previously requested. - Report any new or worsening symptoms promptly. - Be vigilant with personal health checks, including watching for any changes in health status.
--- OUTSIDE RECORDS SUMMARY | 2024-07-19 09:47 | XMS_ITS | Clinical Summary ---
Author Organization [facility] Address [address] [place] [address] Care Team Providers Care Banana Ripening Room Supervisor Name Role Phone Trevon Diez MD Primary Care Provider [phone] Allergies No known active allergies Medications Medication Sig Dispensed Refills Start Date End Date Status folic acid (FOLVITE) tablet 1 mg Take 1 tablet (1 mg total) by mouth daily. 90 tablet 0 12/13/2023 Active Social History Tobacco Use Types Packs/Day Years Used Date Smoking Tobacco: Never Smokeless Tobacco: Never Tobacco Cessation:Counseling Given: Not Answered Alcohol Use Standard Drinks/Week Comments Yes 0 (1 standard drink = 0.6 oz pure alcohol) 6-8 beers on Tuesday + 6-8 beers on Saturdays Sex and Gender Information Value Date Recorded Sex Assigned at Not on file Gender Identity Not on file Sexual Orientation Not on file Job Start Date Occupation Industry Not on file Not on file Not on file Last Filed Vital Signs Vital Sign Reading Time Taken Comments Blood Pressure 122/77 12/13/2023 8:57 AM EDT Pulse 56 12/13/2023 8:57 AM EDT Temperature 36.4 ??C (97.6 ??F) 12/13/2023 8:57 AM ED T Respiratory Rate - - Oxygen Saturation 100% 12/13/2023 8:57 AM EDT Inhaled Oxygen Concentration - - Weight 64.4 kg (142 lb) 12/13/2023 8:57 AM EDT Height 160 cm (5' 3 ) 12/13/2023 8:57 AM EDT Body Mass Index 25.15 12/13/2023 8:57 AM EDT Plan of Treatment Health Maintenance Due Date Last Done Comments Hepatitis B Vaccines (1 of 3 - 3-dose series) 1969 Hepatitis C Screening 1969 COVID-19 Vaccine (#1) 1969 Pneumococcal Vaccine (1 of 2 - PCV) 1975 Depression Screening 1981 Preventative Health Evaluation 1987 DTap / Tdap / Td (1 - Tdap) 1988 Colon Cancer Screening (Colonoscopy) 2014 Shingrix-Zoster Vaccine (1 of 2) 2019 Influenza Vaccine (#1) 2023 RSV Ped < 20 months Aged Out No longe r eligible based on patient's age to complete this topic Care Teams Banana Ripening Room Supervisor Relationship Specialty Start Date End Date Trevon Diez MD [address] [place] [address] [address] [facility] [place], [place] [id number] PCP - General Internal Medicine 11/22/23
--- OUTSIDE RECORDS SUMMARY | 2024-07-19 09:47 | XMS_ITS | Clinical Summary ---
Author Organization [facility] Address [address] [place] [id number] Phone Care Team Providers Care Stacker Tender Name Role Phone Trevon Diez MD Primary Care Provider [phone] Allergies No known active allergies Medications No known medications Active Problems Problem Noted Date Diagnosed Date Basal cell carcinoma of skin 07/07/2016 Overview (02/16/2024): Low back - ED&C Left chest - ED&C Forehead - surgical excision Social History Tobacco Use Types Packs/Day Years Used Date Smoking Tobacco: Never Smokeless Tobacco: Never Tobacco Cessation:Counseling Given: Not Answered Alcohol Use Standard Drinks/Week Comments Yes 0 (1 standard drink = 0.6 oz pur e alcohol) Sex and Gender Information Value Date Recorded Sex Assigned at Not on file Legal Sex Male 3:18 AM EST Gender Identity Not on file Sexual Orientation Not on file Obstetrics History Last Filed Vital Signs Vital Sign Reading Time Taken Comments Blood Pressure 110/69 03/22/2024 10:27 AM EST Pulse 71 03/22/2024 10:27 AM EST Temperature 36.3 ??C (97.4 ??F) 03/22/2024 10:[address] Respiratory Rate - - Oxygen Saturation 98% 03/22/2024 10:27 AM EST Inhaled Oxygen Concentration - - Weight 64.9 kg (143 lb) 03/22/2024 10:27 AM EST Height 160 cm (5' 3 ) 12/13/2023 8:57 AM EDT Body Mass Index 25.33 12/13/2023 8:57 AM EDT Plan of Treatment Health Maintenance Due Date Last Done Comments Hepatitis A Vaccines (1 of 2 - Risk 2-dose series) 1988 Hepatitis B Vaccines (1 of 3 - 19+ 3-dose series) 1988 Pneumococcal Vaccine: 50+ Years (1 of 2 - PCV) 1988 Pneumococcal Vaccine: Pediatrics (0 to 5 Years) and At-Risk Patients (6 to 64 Years) (1 of 2 - PCV) 1988 Zoster Vaccines (1 of 2) 1988 COVID-19 Vaccine (2 - Jansse n risk series) 12/29/2020 12/01/2020 Cholesterol Screening (Lipid Panel) 03/13/2022 Depression Screening 03/13/2022 HIV Screening 03/13/2022 Hepatitis C Screening 03/13/2022 Social Influencers of Health Screening 03/13/2022 Influenza Vaccine (Season Ended) 2024 Colorectal Cancer Screening: FIT-DNA (Cologuard) 06/01/2026 06/01/2023, 06/01/2023 DTaP,Tdap,and Td Vaccines (2 - Td or Tdap) 04/15/2030 04/15/2020 HIB Vaccines Aged Out No longer eligi ble based on patient's age to complete this topic HPV Vaccines Aged Out No longer eligi ble based on patient's age to complete this topic IPV Vaccines Aged Out No longer eligi ble based on patient's age to complete this topic MMR Vaccines Aged Out No longer eligi ble based on patient's age to complete this topic Meningococcal ACWY Vaccine Aged Out N o longer eligible based on patient's age to complete this topic Meningococcal B Vaccine Aged Out No l onger eligible based on patient's age to complete this topic RSV Immunization Patients Under 20 months Aged Out No longer eligible b ased on patient's age to complete this topic Varicella Vaccines Aged Out No longer eligible based on patient's age to complete this topic Insurance [address] [place] [address] Care Teams Stacker Tender Relationship Specialty Start Date End Date Trevon Diez MD [address] [facility] [place] [address] PCP - General 11/22/23
== END 2024-07-19 09:39 | disposition home or self-care (01) ==
LOC: HO.HMCH 08:58
PROVIDERS: PCP Internal Medicine; Visit Provider Internal Medicine
DX: Z00.00 Encounter for general adult medical examination without abnormal findings (principal); M81.0 Age-related osteoporosis without current pathological fracture; E78.00 Pure hypercholesterolemia, unspecified; R73.02 Impaired glucose tolerance (oral); K76.0 Fatty (change of) liver, not elsewhere classified; R79.89 Other specified abnormal findings of blood chemistry

== ENCOUNTER → 2024-07-19 08:57 | Outpatient (BNVA) | payer OTHER, SELFPAY | PROVIDERS: PCP Internal Medicine; Visit Provider Internal Medicine | DX: Z00.00 Encounter for general adult medical examination without abnormal findings (principal); M81.0 Age-related osteoporosis without current pathological fracture; E78.00 Pure hypercholesterolemia, unspecified; R73.02 Impaired glucose tolerance (oral); K76.0 Fatty (change of) liver, not elsewhere classified; R79.89 Other specified abnormal findings of blood chemistry | CPT/HCPCS: 96127 ==

== ENCOUNTER 2024-09-06 11:05 | Observation (INO) | payer OTHER, SELFPAY ==
--- NOTE | ~2024-09-06 | XR_ITS ---
EXAMINATION: XR CHEST CLINICAL INFORMATION: cp COMPARISON: None available. TECHNIQUE: Frontal view of the chest was obtained. FINDINGS: The cardiac, hilar, and mediastinal contours are normal. The lungs are clear bilaterally. No pneumothorax or effusion. No focal osseous or soft tissue abnormality. XR/XR chest 1V IMPRESSION: No active pulmonary disease. Electronically signed by: Nate Alanis MD 09/06/2024 01:36 PM EDT
--- NOTE | ~2024-09-06 | NM_ITS ---
EXERCISE MYOCARDIAL PERFUSION STUDY INDICATION: Chest pain TECHNIQUE: The patient was brought in for an exercise perfusion study on 09/07/2024. Patient performed exercise as per Gavino protocol and was injected 30 mCi of sestamibi once target heart rate was achieved. Images were obtained using the SPECT gamma camera interlaced with the gating device. Images were obtained in supine position. Resting perfusion study was performed on 09/07/2024. Patient was administered 10 mCi of sestamibi intravenously at rest. Images were then obtained in supine position. Total DLP 62 mGy-cm. Images were processed with the software and compared side to side in short axis, horizontal long axis and vertical long axis views. FINDINGS: Raw aquisition reviewed. The stress perfusion study showed no significant perfusion abnormality. Both uncorrected as well as CT attenuation corrected images were reviewed. The gated study shows normal LV systolic function with calculated LVEF of 68%. LV cavity is normal in size. The gated study shows normal wall thickening and contraction of segments. Resting study shows no significant perfusion abnormality. Gating at rest reveals normal wall motion with ejection fraction at 72%. The findings are consistent with no clear reversible or fixed perfusion abnormality. NM/NM frederick perf SPECT rest & str IMPRESSION: 1. Myocardial perfusion imaging study shows normal myocardial perfusion. 2. Gated LVEF is 68% during stress and 72% during rest. 3. Transient ischemic dilatation not present. EKG component of the test reported separately. Electronically signed by: Warner Ribera MD 09/09/2024 12:42 PM EDT
--- NOTE | 2024-09-06 11:17 | ECG_ITS ---
Test Reason : CP Blood Pressure : */* mmHG Vent. Rate : 63 BPM Atrial Rate : 63 BPM P-R Int : 168 ms QRS Dur : 86 ms QT Int : 408 ms P-R-T Axes : 55 10 26 degrees QTcB Int : 417 ms Normal sinus rhythm Normal ECG When compared with ECG of 31-Jan-2009 11:55, No significant changes seen Referred By: Vianca Carnes Electronically Signed By: MERCEDES JOHN
[2024-09-06 11:31] VITALS: BP 146/82; PULSE 57; RESP 18; TEMP 36.5; O2SAT 98; BMI 25.7
--- NOTE | 2024-09-06 11:31 | ED_ITS ---
HPI - Chest Pain General Chief Complaint: Chest Pain Stated Complaint: Chest pain Time Seen by Provider: 09/06/24 13:07 Source: patient Mode of arrival: ambulatory Limitations: no limitations History of Present Illness ED Provider: Dr. Donald Kapadia HPI narrative: 54-year-old male with a history of hyperlipidemia who presents emergency department for evaluation of chest pain, shortness of breath, diaphoresis, lightheadedness which started this morning at 10:30 hours while he was working on taking apart a desk. He states that he was not straining while he was working but had a sudden onset of right-sided chest tightness, that radiate to his right shoulder and down to his right forearm. He states that his arm felt weak. He had a slight change in vision and felt lightheaded as if he was going to pass out. The patient states he had to sit down on the floor and put his feet up in order to not lose consciousness. Patient states that the symptoms lasted for proximally 20 minutes and then resolved. The patient states that his 1st cousin was 39 years old recently had a heart attack. Because of this event, the patient got a coronary CT scan with a coronary artery calcium score of 505. He states that he has not been able to take his cholesterol medicine secondary to headaches and muscle pain. Patient states that he does exercise on a regular basis. He states that yesterday at the gym he was doing the StairMaster and his heart rate was as high as 155. He states he did feel little winded but not more than usual. He did not have chest pain while he was exercising. Since being in the emergency department the patient has been pain-free. 03/13/2024: Total cholesterol 277, LDH 185 and HDL 64 Related Data Home Medications ?Medication ?Instructions ?Recorded ?Confirmed cholecalciferol (vitamin D3) 50 50 mcg PO DAILY 04/28/23 07/19/24 mcg (2,000 unit) capsule magnesium 200 mg tablet 200 mg PO DAILY 04/28/23 07/19/24 multivitamin 1 tab PO DAILY 04/28/23 07/19/24 pterostilbene 50 mg capsule 100 mg PO .QD 04/28/23 07/19/24 calcium carbonate 600 mg PO DAILY 07/19/24 07/19/24 Previous Rx's ?Medication ?Instructions ?Recorded sildenafil 50 mg tablet (Viagra) 50 mg PO DAILY PRN sexual activity 02/10/21 30 days #10 tabs valacyclovir 1 gram tablet 2,000 mg (2 x 1 gram) PO .COMPLEX 06/08/23 4 days #16 tabs Allergies Allergy/AdvReac Type Severity Reaction Status Date / Time simvastatin AdvReac Intermediate myalgia Verified 09/06/24 11:32 PMFSH Past Medical History Medical History Colon cancer screening Nose fracture Hypercholesterolemia Surgical History Ankle fracture, right H/O left inguinal hernia repair Family History Family History (Updated 07/19/24 @ 09:20 by Trevon Diez MD) Father Melanoma Myocardial infarct Maternal Grandfather Myocardial infarct Paternal Grandfather CVA (cerebral vascular accident) Social History Social History (Updated 07/19/24 @ 09:21 by Trevon Diez MD) Housing: House Alcohol intake: current Comment: 2 days weekend 5-6 a day, 07/2024- 3 days week 2 drinks each Patient Tobacco Use Status: Never used Tobacco Tobacco use type: Cigarette e-Cigarette/Vaping Use: Never Used Second Hand Smoke Exposure: No Advance Directives: Yes Advance Directives Information Provided: No Advance Directives on File: No Current occupational status: employed Cognitive needs: No Hearing needs: No Vision needs: No Physical Exam 2 Vital Signs: Vital Signs: Last Vital Signs Temp 98.1 F 09/06/24 13:06 Pulse 61 09/06/24 13:06 Resp 12 09/06/24 13:06 BP 141/91 H 09/06/24 13:06 Pulse Ox 96 09/06/24 13:06 O2 Del Method Room Air 09/06/24 13:06 BMI result Body Mass Index 25.7 Course Course Course Narrative: This is a Rapid Medical Exam performed in triage by Vianca Carnes PA-C. Full HPI, ROS and PE to be performed by primary ED provider. 54 yo M w/PMHx presenting to the ED c/o CP described as feeling tight to L chest radiating to LUE w/assoc SOB, LUE weakness & feeling clammy x 30mins s/p taking apart a heavy desk. Sx have improved since onset. PE: nontoxic appearing, talking in complete sentences, ambulating w/steady gait Plan: EKG, labs, CXR, SARs Medical Decision Making Medical Decision Making [facility] Narrative: 54-year-old male with a history of hyperlipidemia who presents emergency department for evaluation of chest pain, shortness of breath, diaphoresis, lightheadedness which started this morning at 10:30 hours while he was working on taking apart a desk. He states that he was not straining while he was working but had a sudden onset of right-sided chest tightness, that radiate to his right shoulder and down to his right forearm. He states that his arm felt weak. He had a slight change in vision and felt lightheaded as if he was going to pass out. The patient states he had to sit down on the floor and put his feet up in order to not lose consciousness. Patient states that the symptoms lasted for proximally 20 minutes and then resolved. The patient states that his 1st cousin was 39 years old recently had a heart attack. Because of this event, the patient got a coronary CT scan with a coronary artery calcium score of 505. He states that he has not been able to take his cholesterol medicine secondary to headaches and muscle pain. Patient states that he does exercise on a regular basis. He states that yesterday at the gym he was doing the StairMaster and his heart rate was as high as 155. He states he did feel little winded but not more than usual. He did not have chest pain while he was exercising.Since being in the emergency department the patient has been pain- free. physical examination was unremarkable. Differential diagnosis: Includes but is not limited to: myocardial infarction, myocardial ischemia, cardiac arrhythmia, anemia, electrolyte abnormalities Course: 15:16 My independent interpretation patient's laboratory evaluation is as follows: CBC was normal. AST elevated 59, ALT T elevated 101. COVID-19, influenza and RSV tests were negative. First troponin was below detectable limits. Repeat 2 hour troponin was below detectable limits. Twelve EKG revealed no significant abnormalities and was no different from his previous EKG in 2008. chest x-ray revealed no significant abnormalities. I did discuss the patient's presentation with the covering guest relations coordinator, Dr. Ribera. Given his cardiac risk factors which include high CAC score, high cholesterol, age and the severity of his symptoms with a near syncopal episode, the plan is to admitted overnight for cardiac monitoring and to obtain an echocardiogram ( which was ordered by me). If patient remained stable overnight, stress test can be obtained in the morning. 15:26 I discuss the patient's presentation over tiger text with the covering hospitalist, physician communications assistant, Hiral Clark and the patient will be admitted to the hospitalist service for further treatment. Admission/Observation Consideration of admission/observation: Escalation of care including admission/observation considered ( yes) Consult Healthcare Provider Management of the patient was discussed with: Hospitalist and Theatrical Trouper ( Dr. Ribera) Lab Data MDM Lab Attestation statement: I reviewed the patient's lab results. 09/06/24 11:41 09/06/24 11:41 Labs: Lab Results 09/06/24 09/06/24 Range/Units 11:41 13:51 WBC 5.0 (4.8-10.8) X10*3/uL RBC 5.07 (4.60-5.80) X10*6/uL Hgb 15.2 (14.0-18.0) g/dl Hct 44.9 (42.0-52.0) % MCV 88.6 (80.0-98.0) fL MCH 30.0 (27.0-33.0) pg MCHC 33.9 (31.0-36.0) g/dl RDW 12.3 (11.0-16.0) % Plt Count 209 (160-400) X10*3/uL MPV 11.1 (9.4-12.4) fL Immature Gran % (Auto) 0.2 (0.0-0.4) % Neut % (Auto) 52.5 (45-73) % Lymph % (Auto) 27.1 (20-40) % [place] % (Auto) 17.8 H (2-11) % Eos % (Auto) 2.0 (0-4) % Baso % (Auto) 0.4 (0-2) % Lymph # (Auto) 1.4 (1.2-4.9) X10*3/uL [place] # (Auto) 0.9 (0.1-1.2) X10*3/uL Eos # (Auto) 0.1 (0.0-0.4) X10*3/uL Baso # (Auto) 0.0 (0.0-0.2) X10*3/uL Abs Immat Gran (auto) 0.01 (0.00-0.03) X10*3/uL Absolute Neuts (auto) 2.6 (2.0-8.3) x10*3/uL Absolute Nucleated RBC 0.000 (0.0-0.012) X10*3/uL Nucleated RBC % (auto) 0.0 (0.0-0.2) /100WBC Sodium 139 (135-145) mmol/L Potassium 4.2 (3.3-5.1) mmol/L Chloride 104 (96-108) mmol/L Carbon Dioxide 28 (22-29) mmol/L Anion Gap 11 L (12-20) BUN 14 (9-16) mg/dL Creatinine 0.99 (0.5-1.4) mg/dL Estim Creat Clear Calc 65.1 Estimated GFR > 60 Random Glucose 108 (60-115) mg/dL Calcium 10.1 (8.4-10.2) mg/dL Magnesium 2.1 (1.6-2.6) mg/dL Total Bilirubin 0.3 (0.0-1.0) mg/dL Direct Bilirubin 0.1 (0.0-0.5) mg/dL AST 59 H (5-37) U/L ALT 101 H (0-40) U/L Alkaline Phosphatase 73 (39-117) U/L Troponin I High Sens < 2.7 < 2.7 (<3.5-35.0) ng/L Total Protein 8.1 H (6.5-8.0) g/dL Albumin 4.6 (3.5-5.0) g/dL Influenza Type A (PCR) NEGATIVE (Negative) Influenza Type B (PCR) NEGATIVE (Negative) RSV RNA Qual (PCR) NEGATIVE (Negative) SARS-CoV-2 RNA (RT-PCR) NEGATIVE (Negative) Independent Interpretation I performed an independent interpretation of an: EKG and Plain X-Ray Interpretation: my independent interpretation of the patient's one-view chest x-ray is as follows: No acute disease my independent interpretation the patient's 12 EKG done on 09/06/2024 at 11:05 hours is as follows: Normal sinus rhythm rate of 63, normal NE interval, QRS duration QTC interval, no ST segment elevation, no ST segment depression, inverted T-wave in lead 3. When compared to an EKG dated 2008 at 11:55 hours: The inverted T-wave in lead 3 was present on the previous EKG , no significant change. Radiology Impression Discussion of test interpretation with radiology: I have reviewed the radiologist's reading. Radiologist Impression: XR CHEST CLINICAL INFORMATION: cp COMPARISON: None available. TECHNIQUE: Frontal view of the chest was obtained. FINDINGS: The cardiac, hilar, and mediastinal contours are normal. The lungs are clear bilaterally. No pneumothorax or effusion. No focal osseous or soft tissue abnormality. IMPRESSION: No active pulmonary disease. Electronically signed by: Nate Alanis MD 09/06/2024 01:36 PM EDT Independent Historian Clinical information obtained from an independent historian. History obtained from or confirmed by: Spouse External Record Review External record reviewed: Office record Chronic Conditions Patient?s care impacted by: Other ( hypercholesterolemia) Discharge Plan Discharge Clinical Impression: Near syncope, Chest pain Patient Disposition: Admitted As Inpatient Prescriptions: No Action sildenafil [Viagra] 50 mg tablet 50 mg PO DAILY PRN (Reason: sexual activity) 30 Days Qty: 10 0RF Rx Instructions: administer 30 minutes to 4 hours before activity valacyclovir 1 gram tablet 2,000 mg PO .COMPLEX 4 Days Qty: 16 4RF Rx Instructions: 2,000 mg PO B.i.d. or as directed; magnesium 200 mg tablet 200 mg PO DAILY cholecalciferol (vitamin D3) 50 mcg (2,000 unit) capsule 50 mcg PO DAILY multivitamin Tablet 1 tab PO DAILY pterostilbene 50 mg capsule 100 mg PO .QD Rx Instructions: from [employer] calcium carbonate 600 mg calcium (1,500 mg) tablet 600 mg PO DAILY Print Language: Belarusian
[2024-09-06 11:44] LABS: MANUAL DIFF FLAG NO
[2024-09-06 11:50] LABS: Basophils Percent Auto 0.4 % (0-2); Eosinophils Absolute Auto 0.1 X10*3/uL (0.0-0.4); Hematocrit 44.9 % (42.0-52.0); Hemoglobin 15.2 g/dl (14.0-18.0); Imm Gran Abs Auto 0.01 X10*3/uL (0.00-0.03); Imm Gran Pct Auto 0.2 % (0.0-0.4); Lymphocytes Absolute Auto 1.4 X10*3/uL (1.2-4.9); Lymphocytes Percent Auto 27.1 % (20-40); Mean Corpuscular HGB Conc 33.9 g/dl (31.0-36.0); Mean Corpuscular Volume 88.6 fL (80.0-98.0); Mean Platelet Volume 11.1 fL (9.4-12.4); Monocytes Absolute Auto 0.9 X10*3/uL (0.1-1.2); Monocytes Percent Auto 17.8 % (2-11); Neutrophils Absolute Auto 2.6 x10*3/uL (2.0-8.3); Neutrophils Percent Auto 52.5 % (45-73); Platelet Count 209 X10*3/uL (160-400); Red Blood Count 5.07 X10*6/uL (4.60-5.80); Red Cell Distribution Width 12.3 % (11.0-16.0)
[2024-09-06 12:09] LABS: Albumin Level 4.6 g/dL (3.5-5.0); Anion Gap 11 (12-20); Carbon Dioxide 28 mmol/L (22-29); Chloride 104 mmol/L (96-108); Potassium 4.2 mmol/L (3.3-5.1); Sodium 139 mmol/L (135-145); Total Protein 8.1 g/dL (6.5-8.0)
[2024-09-06 12:16] LABS: Alanine Aminotransferase 101 U/L (0-40); Alkaline Phosphatase 73 U/L (39-117); Aspartate Amino Transferase 59 U/L (5-37); Bilirubin Direct 0.1 mg/dL (0.0-0.5); Bilirubin Total 0.3 mg/dL (0.0-1.0); Blood Urea Nitrogen 14 mg/dL (9-16); Calcium 10.1 mg/dL (8.4-10.2); Creatinine Clr Calc Pharmacy 65.1; Estimated Glomerular Filt Rate > 60; Glucose Random 108 mg/dL (60-115); Magnesium 2.1 mg/dL (1.6-2.6); Troponin-I High Sensitivity < 2.7 ng/L (<3.5-35.0)
[2024-09-06 12:55] LABS: Influenza A PCR NEGATIVE (Negative); Influenza B PCR NEGATIVE (Negative); Resp Syncy Virus RNA Qual PCR NEGATIVE (Negative); SARS COV2 PCR INHOUSE NEGATIVE (Negative)
[2024-09-06 13:06] VITALS: BP 141/91; PULSE 61; RESP 12; TEMP 36.7; O2SAT 96
[2024-09-06 14:20] LABS: Troponin-I High Sensitivity < 2.7 ng/L (<3.5-35.0)
[2024-09-06 14:52] VITALS: BP 110/83; PULSE 68; RESP 18; O2SAT 97
--- NOTE | 2024-09-06 15:15 | CA_ITS ---
Transthoracic Echocardiogram Patient (Last, First, Middle): Carlos Trujillo A Gender: Male Date of : 1970 Age: 54 Procedure Date: 09/06/2024 Procedure Type: Transthoracic Echocardiogram [place] [facility] [place] Height: 157.48 cm Weight: 63.5 kg BSA: 1.64 m2 Heart Rate: bpm BP: 110 / 83 mmHg Auto Body Detailer: CHRIS Referring MD: Donald Kapadia MD Symptoms: chest pain, near-syncope, R/O wall motion abnorma Study Quality: Fair ECG Rhythm: Sinus Conclusions: - The left ventricular systolic function is normal. The calculated ejection fraction is 67% by biplane method. - No obvious valvular pathology seen on this study. Findings Left Ventricle Normal left ventricular cavity size. There is normal left ventricular wall thickness. The left ventricular systolic function is normal. The calculated ejection fraction is 67% by biplane method. There is no evidence of regional wall motion abnormalities. Diastolic function is normal for age. Right Ventricle Normal right ventricular cavity size and systolic function. Atria Both atria are normal in size. Aortic Valve There is a normal trileaflet aortic valve. There is no aortic valve stenosis. There is no aortic valve regurgitation. Mitral Valve The mitral valve appears normal. There is trace mitral valve regurgitation. There is no mitral valve stenosis. Pulmonic Valve The pulmonic valve is likely normal. Tricuspid Valve There is trace tricuspid valve regurgitation. There is no evidence of pulmonary hypertension. Great Vessels The asc aorta is normal in size. Small plaque is seen in the sino tubular ridge. Venous The inferior vena cava is normal in size and collapses greater than 50% with inspiration. Pericardium/Pleural There is no evidence of pericardial effusion. Prior Study Comparison No significant change compared to prior study dated: 05/20/2020. Recommendations, Care & Conclusions No obvious valvular pathology seen on this study. Measurements 2D Linear Measurements IVSd: 0.76 0.6-0.9/0.6-1.0 cm LVIDd: 4.09 3.9-5.3/4.2-5.9 cm LVIDd Index: 2.49 2.4-3.2/2.2-3.1 cm/m2 LVIDs: 2.23 2.0-3.6 cm LVPWd: 0.81 0.7-1.1 cm Ao Root: 3.10 2.1-3.5 cm LA Diam: 3.60 2.7-3.8/3.0-4.0 cm LAIDs Index: 2.20 1.5-2.3 cm/m2 LV Mass: 117.82 67-162/88-224 g LV Mass Index: 71.84 43-95/49-115 g/m2 LVOT Diam: 2.10 3.0+(-)1.3 cm 2D Systolic Function EF 4C: 66.10 >55% EF 2C: 66.90 >55% EF BiP: 66.50 >55% Mitral Valve MV Pk E: 0.80 MV PK A: 0.80 MV Decel Time: 257.00 E/A: 1.00 E'Lateral: 12.00 E'Medial: 9.14 E/E' Med: 8.80 E/E' Lat: 6.70 PHT: 75.00 MVA PHT: 2.93 Decel [place]: 3.12 Aortic Valve AoV Pk Compa: 1.19 AoV Mn Compa: 0.82 AoV VTI: 0.26 AoV Pk Grad: 6.00 Aov Mn Grad: 3.00 JAMIE Cont.VTI: 2.12 LVOT LVOT Pk Compa: 0.69 LVOT Mn Compa: 0.48 LVOT VTI: 0.16 LVOT Pk Grad: 2.00 LVOT Mn Grad: 1.00 LVOT Diam: 2.10 LVOT Area: 3.46 Diastolic Function MV Pk E: 0.80 MV Pk A: 0.80 E/A: 1.00 E'Medial: 9.14 E/E' Med: 8.80 E' Laterial: 12.00 E/E' Lat: 6.70 Right Ventricle TAPSE (mm): 26.00 TVS' Compa: 11.00 Tricuspid Valve TR Pk Compa: 1.40 TR Pk Grad: 8.00 RA Press: 3.00 RVSP: 11.00 Great Vessels Aorta Ao Root-2D: 3.10 2.0-3.7 cm Ao Asc: 3.10 2.1-3.4 cm Pulmonary Valve PV Pk Compa: 0.73 Peak PV Grad: 2.00 Updated in Other Vendor System with Status of Final Warner Ribera MD electronically signed on 09/10/2024 11:17:14 AM with status of Final
--- NOTE | 2024-09-06 15:16 | CA_ITS ---
Acquisition Time: 2024-09-07 09:02:50 Total Exercise Time: 00:13:36 Test Indications: CP, SOB Medications: SEE H&P Protocol: RENEE Max HR: 146 BPM 88% of Pred: 165 BPM Max BP: 154/70 mmHG Max Work Load: 16.4 METS Exercise stress test with exercise 13 mins 36 secs of Renee Protocol, achieving 85% MPHR, without any anginal symptoms, with isolated PVCs- pt felt skipped beats with these, with normotensive response to exercise. Without EKG changes meeting criteria for ischemia. In recovery, prt continued to feel well. Nuclear images pending. Test reviewed with Dr. Ribera. Referred By: Warner Ribera Electronically Signed By: Mario Talbot
--- OUTSIDE RECORDS SUMMARY | 2024-09-06 15:31 | XMS_ITS | Clinical Summary ---
Author Organization [facility] Address [address] [place] [id number] Phone Care Team Providers Care Durability Engineer Name Role Phone Trevon Diez MD Primary Care Provider [phone] Allergies No known active allergies Medications No [...] age to complete this topic Insurance [address] [place] [address] Care Teams Durability Engineer Relationship Specialty Start Date End Date Trevon Diez MD [address] [facility] [place] [address] PCP - General 11/22/23
--- NOTE | 2024-09-06 15:47 | P.HPHOSP_ITS ---
History of Present Illness Date of Service: 09/06/24 Attending physician on admission: Wei Coe Chief Complaint: Chest pressure Pt is a 54-year-old male with a PMH significant for?HLD intolerant of statins who presents to the ED for evaluation of right-sided chest pressure/discomfort. Pt reports was doing nothing particularly exertional, but was taking apart a desk this afternoon when he suddenly experienced right-sided chest pressure/discomfort that radiated to shoulder and down right arm. Overall felt unwell with lightheadedness, dizziness, SOB, and diaphoresis. Right arm felt weak and pt also had acute vision changes with spatial distortion. The pt had to lay down before symptoms resolved after around 20 minutes. No loss of consciousness. Pt reports leads an active lifestyle and has been running and lifting weights his whole life. Has significant family hx of CAD/[place], including grandparents and a 1st cousin that recently had a heart attack at age 39. Pt recently underwent coronary CT that came back with an elevated CAC score of 505. Worked out yesterday at the gym and felt fine, though reports a few months ago in June was at the gym and had a similar episode of dizziness while on a StairMaster. Pt with a hx of HLD though has been intolerant of statins and been attempting to control cholesterol with lifestyle and dietary modifications. Currently pt does not have any acute medical complaints, including chest pain/pressure or palpitations. Denies hx of smoking, though drinks a glass or 2 of red wine most nights, and 6-10 beers on most weekends. In the ED pt was mildly hypertensive at 146/82, vitals otherwise stable and WNL. Labs were significant for AST 59, ALT 101, cholesterol 245, and LDL 166. Serial troponins negative. No leukocytosis. Stable H&H. No significant electrolyte abnormalities. Renal function WNL. Tested negative for flu, COVID, RSV. CXR showed no active pulmonary disease. EKG demonstrated normal sinus rhythm without evidence of significant ST elevations or depressions. Pt was treated in the ED with aspirin. Pt is admitted to the hospital under observation for treatment and further evaluation of chest pain concerning for angina. Review of Systems 2 Review of Systems: Negative except for that which is stated in the HPI. [facility] Medical History Colon cancer screening Nose fracture Hypercholesterolemia Family History Father Melanoma Myocardial infarct Maternal Grandfather Myocardial infarct Paternal Grandfather CVA (cerebral vascular accident) Surgical History Ankle fracture, right H/O left inguinal hernia repair Social History Housing: House Alcohol intake: current Comment: 2 days weekend 5-6 a day, 07/2024- 3 days week 2 drinks each Patient Tobacco Use Status: Never used Tobacco Tobacco use type: Cigarette e-Cigarette/Vaping Use: Never Used Second Hand Smoke Exposure: No Advance Directives Date on File: 09/06/24 service: No Current occupational status: employed Cognitive needs: No Hearing needs: No Vision needs: No Meds Allergies Allergy/AdvReac Type Severity Reaction Status Date / Time simvastatin AdvReac Intermediate myalgia Verified 09/06/24 11:32 Physical Exam 2 Vital Signs and Narrative: Vital Signs: Last Vital Signs Temp 98.1 F 09/06/24 13:06 Pulse 68 09/06/24 14:52 Resp 18 09/06/24 14:52 BP 110/83 09/06/24 14:52 Pulse Ox 97 09/06/24 14:52 O2 Del Method Room Air 09/06/24 14:52 BMI result Body Mass Index 25.7 General: AOx3, no acute distress Resp: CTA bilaterally CVS: S1, S2, RRR GI: +BS, NT, no distention Skin: Warm, dry Neuro: Cranial nerves II-XII grossly intact bilaterally. Motor grossly intact bilaterally Extremities: No edema Psych: Appropriate affect Results Labs 09/06/24 11:41 09/06/24 11:41 Labs: Laboratory Results - last 24 hr 09/06/24 09/06/24 11:41 13:51 MCV 88.6 MCH 30.0 MCHC 33.9 RDW 12.3 Plt Count 209 MPV 11.1 Immature Gran % (Auto) 0.2 Neut % (Auto) 52.5 Lymph % (Auto) 27.1 [place] % (Auto) 17.8 H Eos % (Auto) 2.0 Baso % (Auto) 0.4 Lymph # (Auto) 1.4 [place] # (Auto) 0.9 Eos # (Auto) 0.1 Baso # (Auto) 0.0 Abs Immat Gran (auto) 0.01 Absolute Neuts (auto) 2.6 Absolute Nucleated RBC 0.000 Nucleated RBC % (auto) 0.0 Anion Gap 11 L Estim Creat Clear Calc 65.1 Estimated GFR > 60 Random Glucose 108 Calcium 10.1 Magnesium 2.1 Total Bilirubin 0.3 Direct Bilirubin 0.1 AST 59 H ALT 101 H Alkaline Phosphatase 73 Troponin I High Sens < 2.7 < 2.7 Total Protein 8.1 H Albumin 4.6 Influenza Type A (PCR) NEGATIVE Influenza Type B (PCR) NEGATIVE RSV RNA Qual (PCR) NEGATIVE SARS-CoV-2 RNA (RT-PCR) NEGATIVE Imaging Radiologist's Impressions: Impressions Chest X-Ray 09/06/24 12:10 IMPRESSION: No active pulmonary disease. Electronically signed by: Nate Alanis MD 09/06/2024 01:36 PM EDT RP Assessment and Plan (1) Atypical chest pain: Status: Acute Plan Pt is a 54-year-old male with a PMH significant for?HLD intolerant of statins who presents to the ED for evaluation of right-sided chest pressure/discomfort. Pt is admitted to the hospital under observation for treatment and further evaluation of chest pain concerning for angina. Chest pressure Pt with 20 minute episode of chest pressure accompanied by lightheadedness, dizziness, SOB, acute vision changes, and diaphoresis Serial troponins negative, EKG without ischemic changes Concerning for angina Recent CAC score of 505 Hx of HLD unable to tolerate statins, not on ezetimibe Lipid panel mildly elevated with cholesterol 245 and LDL 166 Pt given aspirin in the ED, will continue Will get echocardiogram Nuclear stress test if stable Cardiology consult Monitor on telemetry Full Code Attending:? DVT Prophylaxis: Lovenox Pt will be admitted to the hospital under observation for treatment and further evaluation of chest pressure concerning for angina. Pt will require additional cardiac workup and close cardiac monitoring. Quality Stroke Does the patient have a stroke diagnosis?: No VTE Prior VTE?: No VTE Risk Level:: Medical - moderate - high VTE Device Contraindication: Treatment Not Indicated VTE Drug Contraindication: Treatment Not Indicated
[2024-09-06 17:10] VITALS: BP 123/85; PULSE 59; RESP 12; O2SAT 97
[2024-09-06] MEDS: Aspirin 81 MG TAB.CHEW 324 MG PO (17:11)
[2024-09-06 17:35] LABS: Cholesterol 245 mg/dL (<200); HDL Cholesterol 63 mg/dL (>40); LDL Cholesterol Calculated 166 mg/dL (<100); Triglycerides 84 mg/dL (<150)
--- NOTE | 2024-09-06 18:25 | PHA.MEDREC ---
Addendum entered by Aiden Hernández RPh 09/06/24 18:30: Reviewed by [facility]. Removed sildenafil from list, as there are no claims after calling 2 pharmacies. Original Note: Pharmacy Consult ? Medication Reconciliation Pharmacy has completed the medication reconciliation. Spoke with pt and he confirmed he has not taken any of his OTC medications in about 3 weeks. Pt confirmed he has Sildenafil 50mg tabs at home as needed that he said he was getting at [facility] in [place]; [facility] called [facility] and they have not filled anything for that pt in over a year and they have no claims for Sildenafil. [facility] also called [facility] on [facility] [facility] since that is now the Pt preferred and they stated they have no history of that pt filling at their location or any other [facility].
[2024-09-06 19:22] VITALS: BP 163/93; PULSE 70; RESP 16; TEMP 36.4; O2SAT 98
[2024-09-06 23:28] VITALS: BP 114/71; PULSE 60; RESP 16; TEMP 36.7; O2SAT 98
[2024-09-07 03:09] VITALS: BP 123/66; PULSE 61; RESP 16; TEMP 36.5; O2SAT 98
[2024-09-07 06:52] VITALS: BP 117/71; PULSE 60; RESP 18; TEMP 36.4; O2SAT 97
[2024-09-07] MEDS: Aspirin 81 MG TAB.CHEW PO (10:29)
[2024-09-07 11:03] VITALS: BP 114/79; PULSE 66; RESP 18; TEMP 36.6; O2SAT 99
--- NOTE | 2024-09-07 13:08 | PM.CNCAR ---
History of Present Illness History of Present Illness Date of Service: 09/07/24 Chief complaint: Chest Pain Narrative: This is a cardiology consultation regarding chest pain. Patient has a history of elevated lipids but not on statins because of prior intolerance from many years ago. He was admitted to the hospital for complaints of right-sided chest discomfort. He was apparently taking apart at desk when all of a sudden he developed discomfort in the right side of the chest and that went to the right arm. Then was lightheaded and there was question of presyncope but he actually did not pass out. He was diaphoretic extra. Subsequently, seen in the ER and then admitted. Of note, patient has a family history of coronary disease and hence he underwent a calcium scoring CT scan few days back. That was positive for calcium around 500. He is generally active and exercise regularly without any issues. In history there is mention of alcohol use including wine during nights and beer during weekends. Review of Systems Review of Systems: Yes all other systems are reviewed and are negative Constitutional: Constitutional: Reports as per HPI and Reports no additional constitutional complaints Eyes: Eyes: Reports as per HPI and Denies no additional eye complaints ENT: Denies system reviewed and no additional complaints, except as documented and Reports as per HPI Cardiovascular: Cardiovascular: Reports as per HPI, Reports no additional cardiovascular complaints, Denies acrocyanosis, Denies cool extremities, Reports chest pain, Denies leg edema, Reports lightheadedness, Denies palpitations and Denies dyspnea Respiratory: Respiratory: Reports as per HPI, Denies no additional respiratory complaints and Denies dyspnea Gastrointestinal: Gastrointestinal: Reports as per HPI and Denies no additional gastrointestinal complaints Genitourinary: Genitourinary: Reports no additional male genitourinary complaints and Reports as per HPI Musculoskeletal: Musculoskeletal: Reports no additional musculoskeletal complaints and Reports as per HPI Integumentary/Breasts: Skin/Breast: Reports system reviewed and no additional complaints, except as docu Neurologic: Reports system reviewed and no additional complaints, except as documented and Reports as per HPI Psychiatric: Psychiatric: Reports no additional psychiatric complaints and Reports as per HPI Endocrine: Endocrine: Reports no additional endocrine complaints, Reports as per HPI and Denies palpitations Hematologic/Lymphatic: Hematologic/Lymphatic: Reports no additional hematologic/lymphatic complaints and Reports as per HPI Allergic/Immunologic: Allergic/Immunologic: Reports no additional allergic/immunologic complaints and Reports as per HPI PMFSH Past Medical History Medical History Colon cancer screening Nose fracture Hypercholesterolemia Family History Family History Father Melanoma Myocardial infarct Maternal Grandfather Myocardial infarct Paternal Grandfather CVA (cerebral vascular accident) Surgical History Surgical History Ankle fracture, right H/O left inguinal hernia repair Social History Social History Housing: House Alcohol intake: current Comment: 2 days weekend 5-6 a day, 07/2024- 3 days week 2 drinks each Patient Tobacco Use Status: Never used Tobacco Tobacco use type: Cigarette e-Cigarette/Vaping Use: Never Used Second Hand Smoke Exposure: No Advance Directives Date on File: 09/06/24 Current occupational status: employed Cognitive needs: No Hearing needs: No Vision needs: No Meds Allergies Allergy/AdvReac Type Severity Reaction Status Date / Time simvastatin AdvReac Intermediate myalgia Verified 09/06/24 11:32 Active Medications: Current Medications Acetaminophen (Acetaminophen 325 Mg Tablet) 650 mg PO Q6H PRN PRN Reason: Pain, Mild 1-3,fever,headache Aspirin (Aspirin 81 Mg Tab.Chew) 81 mg PO DAILY [facility] Last Admin: 09/07/24 10:29 Dose: 81 mg Calcium Carbonate (Calcium Carbonate 750 Mg Tab.Chew) 750 mg PO Q4H PRN PRN Reason: Heartburn Magnesium Hydroxide (Milk Of Magnesia 30 Ml Oral.Susp) 30 ml PO DAILY PRN PRN Reason: Constipation Melatonin (Melatonin 3 Mg Tablet) 6 mg PO BEDTIME PRN PRN Reason: Insomnia Ondansetron HCl (Ondansetron Hcl 4 Mg/2 Ml Vial) 4 mg IVPUSH Q8H PRN PRN Reason: Nausea and Vomiting Sodium Chloride (0.9 % Sodium Chloride Flush 3 Ml Syringe) 3 ml IVFLUSH QSHIFT [facility] Last Admin: 09/07/24 09:33 Dose: Not Given Physical Exam Vital Signs: Vital Signs: Last Vital Signs Temp 97.9 F 09/07/24 11:03 Pulse 66 09/07/24 11:03 Resp 18 09/07/24 11:03 BP 114/79 09/07/24 11:03 Pulse Ox 99 09/07/24 11:03 O2 Del Method Room Air 09/07/24 11:03 BMI result Body Mass Index 25.7 Const: General: comfortable and no acute distress Orientation/consciousness: patient oriented x3 HEENT: Other: Unremarkable Head: Yes normal to inspection Neck: Neck: Yes normal visual inspection Chest: Chest palpation & inspection: normal inspection of the chest Resp: Auscultation: clear to auscultation bilaterally Cardio: Palpation: normal PMI Heart sounds: S1 normal heart sound present, S2 normal heart sound present, no gallops, no murmurs and no rubs GI: Palpation (GI): Soft to palpation Back/Spine/Pelvis: Other: unremarkable Skin: General skin exam: no rashes or lesions noted Neuro: General: patient oriented x3 Extrem: General: Yes normal to inspection Psych: Mental Status: mental status grossly normal Objective Labs and Meds 09/06/24 11:41 09/06/24 11:41 Lab results: Laboratory Results - last 24 hr 09/06/24 09/06/24 11:41 13:51 Troponin I High Sens < 2.7 Triglycerides 84 Cholesterol 245 H LDL Cholesterol, Calc 166 H HDL Cholesterol 63 ECG Interpretation: EKG with sinus rhythm at 63/Min; no significant ST-T changes; normal [place] and corrected QT. Imaging Radiologist's impression: Impressions Chest X-Ray 09/06/24 12:10 IMPRESSION: No active pulmonary disease. Electronically signed by: Nate Alanis MD 09/06/2024 01:36 PM EDT RP Assessment and Plan (1) Chest pain: Status: Acute (2) Atherosclerotic cardiovascular disease: Status: Acute (3) Abnormal LFTs: Status: Acute Plan Baseline EKG unremarkable. High sensitivity troponin is within range. Echocardiogram could not be reported due to technical issue. However, no obvious abnormalities on evaluation. In the stress test, he was able to exercise for 16.4 METS without angina. No EKG evidence of ischemia. Perfusion component looks okay. In the calcium scoring CT, total score is 405. LAD 242. Circumflex 141. Right coronary 120. Left main 1.8. Overall, evidence of coronary disease on calcium scoring CT, but no ischemia on stress testing. Mainly risk factor modification. It seems there is a history of statin intolerance from many years ago. We can possibly consider resuming it but there is also LFT abnormality noted this admission with an ALT of 101 and AST of 59. Unclear etiology. He does drink alcohol but the pattern may not be alcohol related. This will need further workup as an outpatient and he may need liver ultrasound extra. With regard to lipids, we can use Repatha in the interim while LFT issue is being addressed. Ideally, should also cut back on alcohol. Discussed with significant other. Follow-up will be arranged. Procedures Date of Service Date of Service: 09/07/24
--- NOTE | 2024-09-07 13:20 | MHC.CM.PN ---
Addendum entered by Bernice Lyle 09/07/24 14:33: PT WILL DC HOME TODAY WITH NO SERVICES Original Note: PT REPORTS HE LIVES WITH HIS AND IS INDEPENDENT WITH CARE HE HAS NO DME AND NO SERVICES COPY OF HCP REQUESTED PCP: [facility] OBSERVATION NOTICE DELIVERED DCP: HOME NO SERVICES VIA PRIVATE TRANSPORT
--- NOTE | 2024-09-07 14:11 | P.DS_ITS ---
DS: Providers Provider Date of Service: 09/07/24 Date of admission: 09/06/24 15:43 Date of discharge: 09/07/24 Primary care physician: Trevon Diez MD Consults: 09/06/24 15:44 Consult to Cardiology Routine Consulting Provider: [facility] Reason for consultation: Right-sided CP radiating to right arm DS: Diagnosis Discharge Diagnosis (1) Atypical chest pain: Status: Acute (2) Atherosclerotic cardiovascular disease: Status: Acute (3) Elevated liver enzymes: Status: Acute DS: Summary Hospital Course Hospital Course: From the history and physical by the admitting hospitalist, EDD [place], 09/06/24: Pt is a 54-year-old male with a PMH significant for?HLD intolerant of statins who presents to the ED for evaluation of right-sided chest pressure/discomfort. Pt reports was doing nothing particularly exertional, but was taking apart a desk this afternoon when he suddenly experienced right-sided chest pressure/discomfort that radiated to shoulder and down right arm. Overall felt unwell with lightheadedness, dizziness, SOB, and diaphoresis. Right arm felt weak and pt also had acute vision changes with spatial distortion. The pt had to lay down before symptoms resolved after around 20 minutes. No loss of consciousness. Pt reports leads an active lifestyle and has been running and lifting weights his whole life. Has significant family hx of CAD/ME, including grandparents and a 1st cousin that recently had a heart attack at age 39. Pt recently underwent coronary CT that came back with an elevated CAC score of 505. Worked out yesterday at the gym and felt fine, though reports a few months ago in June was at the gym and had a similar episode of dizziness while on a [employer]. Pt with a hx of HLD though has been intolerant of statins and been attempting to control cholesterol with lifestyle and dietary modifications. Currently pt does not have any acute medical complaints, including chest pain/pressure or palpitations. Denies hx of smoking, though drinks a glass or 2 of red wine most nights, and 6-10 beers on most weekends. In the ED pt was mildly hypertensive at 146/82, vitals otherwise stable and WNL. Labs were significant for AST 59, ALT 101, cholesterol 245, and LDL 166. Serial troponins negative. No leukocytosis. Stable H&H. No significant electrolyte abnormalities. Renal function WNL. Tested negative for flu, COVID, RSV. CXR showed no active pulmonary disease. EKG demonstrated normal sinus rhythm without evidence of significant ST elevations or depressions. Pt was treated in the ED with aspirin. Pt is admitted to the hospital under observation for treatment and further evaluation of chest pain concerning for angina. He was admitted to the telemetry unit. Chest pain resolved. High-sensitivity troponins negative. Cardiology consulted. Echocardiogram without any obvious abnormalities. Exercise stress test performed; achieved 16.4 METS without angina or ischemic EKG changes. Normal perfusion. Evidence of coronary disease on calcium scoring CT but no ischemia on stress testing. Focus should be on risk factor modification. History of statin intolerance; could trial a different statin but LFTs slightly high with ALT>AST elevation. To repeat LFTs in 1-2 weeks and follow up with primary care doctor. Advised to cut back on alcohol. Cardiology will look into Repatha. Time Attestation Discharge Coordination Time (in mins): 35 Quality: Safe Use of Opioids Does Pt have an Active Cancer Diagnosis on the Problem List?: No Quality: Stroke Does the patient have a stroke diagnosis?: No Physical Exam Vital Signs: Vital Signs: Last Vital Signs Temp 97.9 F 09/07/24 11:03 Pulse 66 09/07/24 11:03 Resp 18 09/07/24 11:03 BP 114/79 09/07/24 11:03 Pulse Ox 99 09/07/24 11:03 O2 Del Method Room Air 09/07/24 11:03 BMI result Body Mass Index 25.7 Gen: in no acute distress HEENT: sclera anicteric, moist mucus membranes Neck: supple Lungs: clear to auscultation bilaterally Heart: regular rate and rhythm, no murmurs Abd: soft, non-tender, non-distended Ext: no edema Skin: warm/well-perfused Neuro: alert and oriented x3, no focal findings Psych: appropriate affect DS: Data Data Completed and Pending Completed studies during hospitalization [Text1]: Laboratory Results WBC 5.0 X10*3/uL (4.8-10.8) 09/06/24 11:41 RBC 5.07 X10*6/uL (4.60-5.80) 09/06/24 11:41 Hgb 15.2 g/dl (14.0-18.0) 09/06/24 11:41 Hct 44.9 % (42.0-52.0) 09/06/24 11:41 MCV 88.6 fL (80.0-98.0) 09/06/24 11:41 MCH 30.0 pg (27.0-33.0) 09/06/24 11:41 MCHC 33.9 g/dl (31.0-36.0) 09/06/24 11:41 RDW 12.3 % (11.0-16.0) 09/06/24 11:41 Plt Count 209 X10*3/uL (160-400) 09/06/24 11:41 MPV 11.1 fL (9.4-12.4) 09/06/24 11:41 Immature Gran % (Auto) 0.2 % (0.0-0.4) 09/06/24 11:41 Neut % (Auto) 52.5 % (45-73) 09/06/24 11:41 Lymph % (Auto) 27.1 % (20-40) 09/06/24 11:41 [place] % (Auto) 17.8 % (2-11) H 09/06/24 11:41 Eos % (Auto) 2.0 % (0-4) 09/06/24 11:41 Baso % (Auto) 0.4 % (0-2) 09/06/24 11:41 Lymph # (Auto) 1.4 X10*3/uL (1.2-4.9) 09/06/24 11:41 [place] # (Auto) 0.9 X10*3/uL (0.1-1.2) 09/06/24 11:41 Eos # (Auto) 0.1 X10*3/uL (0.0-0.4) 09/06/24 11:41 Baso # (Auto) 0.0 X10*3/uL (0.0-0.2) 09/06/24 11:41 Abs Immat Gran (auto) 0.01 X10*3/uL (0.00-0.03) 09/06/24 11:41 Absolute Neuts (auto) 2.6 x10*3/uL (2.0-8.3) 09/06/24 11:41 Absolute Nucleated RBC 0.000 X10*3/uL (0.0-0.012) 09/06/24 11:41 Nucleated RBC % (auto) 0.0 /100WBC (0.0-0.2) 09/06/24 11:41 Sodium 139 mmol/L (135-145) 09/06/24 11:41 Potassium 4.2 mmol/L (3.3-5.1) 09/06/24 11:41 Chloride 104 mmol/L (96-108) 09/06/24 11:41 Carbon Dioxide 28 mmol/L (22-29) 09/06/24 11:41 Anion Gap 11 (12-20) L 09/06/24 11:41 BUN 14 mg/dL (9-16) 09/06/24 11:41 Creatinine 0.99 mg/dL (0.5-1.4) 09/06/24 11:41 Estim Creat Clear Calc 65.1 09/06/24 11:41 Estimated GFR > 60 09/06/24 11:41 Random Glucose 108 mg/dL (60-115) 09/06/24 11:41 Calcium 10.1 mg/dL (8.4-10.2) 09/06/24 11:41 Magnesium 2.1 mg/dL (1.6-2.6) 09/06/24 11:41 Total Bilirubin 0.3 mg/dL (0.0-1.0) 09/06/24 11:41 Direct Bilirubin 0.1 mg/dL (0.0-0.5) 09/06/24 11:41 AST 59 U/L (5-37) H 09/06/24 11:41 ALT 101 U/L (0-40) H 09/06/24 11:41 Alkaline Phosphatase 73 U/L (39-117) 09/06/24 11:41 Troponin I High Sens < 2.7 ng/L (<3.5-35.0) 09/06/24 13:51 Total Protein 8.1 g/dL (6.5-8.0) H 09/06/24 11:41 Albumin 4.6 g/dL (3.5-5.0) 09/06/24 11:41 Triglycerides 84 mg/dL (<150) 09/06/24 11:41 Cholesterol 245 mg/dL (<200) H 09/06/24 11:41 LDL Cholesterol, Calc 166 mg/dL (<100) H 09/06/24 11:41 HDL Cholesterol 63 mg/dL (>40) 09/06/24 11:41 Influenza Type A (PCR) NEGATIVE (Negative) 09/06/24 11:41 Influenza Type B (PCR) NEGATIVE (Negative) 09/06/24 11:41 RSV RNA Qual (PCR) NEGATIVE (Negative) 09/06/24 11:41 SARS-CoV-2 RNA (RT-PCR) NEGATIVE (Negative) 09/06/24 11:41 Impressions Chest X-Ray 09/06/24 12:10 IMPRESSION: No active pulmonary disease. Electronically signed by: Nate Alanis MD 09/06/2024 01:36 PM EDT RP Discharge Plan Discharge Patient Disposition: Home, Self-Care Discharge Diagnosis: chest pain dyslipidemia Referrals: Po,Trevon Kim MD [Primary Care Provider] - 1 Week Warner Ribera MD [Physician] - 2 Weeks Discharge Medications: New aspirin 81 mg Tablet,Chewable 81 mg PO DAILY Qty: 30 0RF No Action Repatha SureClick 140 mg/mL pen injector 140 mg subcut Q2W Qty: 2 5RF Discharge Orders: Discharge Order (Routine); Ordered 09/07/24 Ordered By: Wei Coe Diet: Advance to usual diet Activity on Discharge: As tolerated Stand Alone Forms: Patient Portal Discharge page Print Language: Indonesian Other Ambulatory Orders: Liver Panel (Routine) Timeframe: 1 Week Facility: [facility] - Location: Laboratory Ordered By: Wei Coe Care Plan Goals: resolution of chest pain Health Concerns: chest pain dyslipidemia Plan of Treatment: take aspirin 81 mg daily work up elevated liver enzymes with primary care doctor before starting a statin; repeat lab [LFTs] in 1 week follow up with Cardiology to be scheduled; consider Repatha injections for control of cholesterol Please follow up with your primary care doctor within 1 week. Return to the hospital if you experience recurrent or worsening symptoms. Assessment: See Discharge Summary. Patient Instructions: Aspirin (By mouth)
== END 2024-09-07 14:10 | disposition home or self-care (01) ==
LOC: HO.ED 15:29 → HO.EDOVER 16:15 → HO.IMC 17:08
PROVIDERS: Physician Assistant; Admitting Provider Student in an Organized Health Care Education/Training Program; Emergency Provider Emergency Medicine Emergency Medical Services; PCP Internal Medicine; Visit Provider Family Medicine
DX: R07.9 Chest pain, unspecified (principal); E78.5 Hyperlipidemia, unspecified; I25.10 Atherosclerotic heart disease of native coronary artery without angina pectoris; R74.8 Abnormal levels of other serum enzymes; R79.89 Other specified abnormal findings of blood chemistry; R06.02 Shortness of breath; R61 Generalized hyperhidrosis; R55 Syncope and collapse; H53.9 Unspecified visual disturbance; R53.1 Weakness; Z79.899 Other long term (current) drug therapy; Z03.818 Encounter for observation for suspected exposure to other biological agents ruled out
CPT/HCPCS: 0241U; 36415; 71045; 78452; 80048; 80061; 80076; 83735; 84484; 85025; 93005; 93017; 93306; 99222; 99285; A9500; Q9957

== ENCOUNTER → 2024-09-06 11:34 | Outpatient (BNV) | payer OTHER, SELFPAY | PROVIDERS: Emergency Provider Emergency Medicine Emergency Medical Services; PCP Internal Medicine; Visit Provider Radiology Diagnostic Radiology | DX: R07.9 Chest pain, unspecified (principal) | CPT/HCPCS: 71045 ==

== ENCOUNTER → 2024-09-06 15:16 | Outpatient (BNV) | payer OTHER, SELFPAY | PROVIDERS: Admitting Provider Student in an Organized Health Care Education/Training Program; Emergency Provider Emergency Medicine Emergency Medical Services; PCP Internal Medicine | DX: R07.9 Chest pain, unspecified (principal) | CPT/HCPCS: 93010; 93016; 93018 ==

== ENCOUNTER 2024-09-06 15:43 | Outpatient (BNV) | payer OTHER, SELFPAY | END 2024-09-07 15:16 | PROVIDERS: Admitting Provider Student in an Organized Health Care Education/Training Program; Emergency Provider Emergency Medicine Emergency Medical Services; PCP Internal Medicine; Visit Provider Internal Medicine | DX: R07.9 Chest pain, unspecified (principal) | CPT/HCPCS: 78452 ==

== ENCOUNTER → 2024-09-06 15:43 | Outpatient (BNV) | payer OTHER, SELFPAY | PROVIDERS: Admitting Provider Student in an Organized Health Care Education/Training Program; Emergency Provider Emergency Medicine Emergency Medical Services; PCP Internal Medicine; Visit Provider Student in an Organized Health Care Education/Training Program | DX: R07.89 Other chest pain (principal); I25.10 Atherosclerotic heart disease of native coronary artery without angina pectoris; R74.8 Abnormal levels of other serum enzymes | CPT/HCPCS: 99223; 99239 ==

== ENCOUNTER → 2024-09-06 15:43 | Outpatient (BNV) | payer OTHER, SELFPAY | PROVIDERS: Admitting Provider Student in an Organized Health Care Education/Training Program; Emergency Provider Emergency Medicine Emergency Medical Services; PCP Internal Medicine; Visit Provider Internal Medicine | DX: R07.9 Chest pain, unspecified (principal); I25.10 Atherosclerotic heart disease of native coronary artery without angina pectoris; R79.89 Other specified abnormal findings of blood chemistry | CPT/HCPCS: 99223 ==

== ENCOUNTER 2024-09-17 10:35 | Outpatient (AMB) | payer OTHER, SELFPAY ==
--- NOTE | 2024-09-17 10:40 | A.OFFPC_ITS ---
Vital Signs 09/17/24 10:41 Height 5 ft 1.49 in Weight 138 lb 4 oz BMI 25.7 BP 130/70 Blood Pressure Location Lt brachial Position Sitting Pulse 67 Pulse Source Pulse Oximeter Temp 97.3 F Temp Source Temporal Artery Scan Pulse Oximetry (%) 96 Oxygen Delivery Method Room Air Intake Visit Reasons: [place] [facility] [place] Chest pain Intake Note: Patient is here for hospital discharge and TCM follow up. Patient was [place] [facility] [place]. Securities Lending Trader Required: No Director Federal: Not Required per policy Accompanied by: Self / Same As Patient Allergies simvastatin Adverse Reaction (Intermediate, Verified 09/17/24 10:55) myalgia Medication List - Last Reconciled 09/17/24 by MIREYA Hunter aspirin 81 mg PO DAILY evolocumab (Repatha SureClick) 140 mg subcut Q2W Tobacco use date assessed: 09/17/24 Dental Screening Dental Screen Date: 04/06/24 HPI [facility] 09/07 Chest pain HPI Details The patient is a 54-year-old male presenting for follow up appointment after [facility] [place] for [place] Patient was admitted [place] [facility] [place]. Patient went in for evaluation of right-sided chest pain that radiated to shoulder and down right arm. Overall felt on we will with lightheadedness, dizziness, SOB, and diaphoresis. He reported right arm cut week and vision changes with spatial distortion. The patient reported that he had to lay down before the symptoms resolved. The patient recently underwent coronary CT that came back with elevated CAC score of 505. He was on statins but was unable to tolerate this medication. Patient denies smoking and only drinks a glass or 2 of red wine most nights, and 6-10 beers on most weekends. He was mildly hypertensive of 146/82. Labs: AST 59, ALT 101, total cholesterol 245, and LDL 166. Serial troponins negative. No leukocytosis. Stable H&H. No significant electrolyte abnormalities. Renal function within normal limits. EKG was unremarkable. Focus remains to be on risk factor modification. Patient has a strong family history of heart disease. In the hospital they questioned starting patient on a different statin but LFTs slightly high with ALT greater than AST elevation. Plans to repeat LFTs in 1-2 weeks and follow up with primary and Cardiology. Reports that Cardiology will look into Repatha. The patient was also advised to cut down on alcohol intake. Patient reports today that he stopped drinking alcohol after his discharge. He has not had any more symptoms since discharge. The patient has an appt with cardiology on October 03, 2024. Lipid profile was [place] [facility] [place] liver. The patient was encouraged to get this test done to further evaluate if he could be started on a different statin. Reports that his high cholesterol is familial because he lives a active lifestyle. He denies chest pain, sob, heart palpitation or dizziness No abdominal pain/change in bowel habits Denies urinary symptoms TCM TCM Information Date of Discharge 09/07/24 Discharged From [facility] Medical History Near syncope Colon cancer screening Nose fracture Hypercholesterolemia Surgical History Ankle fracture, right H/O left inguinal hernia repair Family History Father Melanoma Myocardial infarct Maternal Grandfather Myocardial infarct Paternal Grandfather CVA (cerebral vascular accident) Social History Housing: House Alcohol intake: current Comment: 2 days weekend 5-6 a day, 07/2024- 3 days week 2 drinks each Patient Tobacco Use Status: Never used Tobacco Tobacco use type: Cigarette e-Cigarette/Vaping Use: Never Used Second Hand Smoke Exposure: No Advance Directives Date on File: 09/06/24 service: No Current occupational status: employed Cognitive needs: No Hearing needs: No Vision needs: No Questionnaire Thrive Questionnaire Date Thrive assessed: 07/19/24 I am a: Patient What is your living situation today?: I have a steady place to live Within the past 12 months, did the food you bought not last and you didn't have the money to get more?: Never true Within the past 12 months, did you worry whether your food would run out before you got money to buy more?: Never true Do you have trouble paying for medicines?: No Do you have trouble getting transportation to medical appointments?: No Do you have trouble paying your heating and electricity bill?: No Do you have trouble taking care of your child, family member or friend?: No Do you have trouble with day-to-day activities such as bathing, preparing meals, shopping, managing finances, etc.?: No Are you currently unemployed and looking for a job?: No Are you interested in more education?: No Please select the resources that you would like help with: None Currently or been in a relationship where the following occur: No concerns reported THRIVE Score: 0 LORRAINE-7 AMB Questionnaire LORRAINE-7 Date LORRAINE - 7 assessed: 07/19/24 Source: Developed by Drs. Fantasma Barone, Kyara Caballero, Justin Murray and colleagues, with an educational genesis from [employer]. Review of Systems Const Denies headache(s) Eyes Denies loss of vision ENT Denies vertigo, Denies dizziness, Denies headache(s) and Denies sore throat Card Denies chest pain, Denies leg edema and Denies lightheadedness Resp Denies cough, Denies hemoptysis and Denies wheezing GI Denies abdominal pain, Denies melena, Denies constipation, Denies diarrhea and Denies vomiting Denies dysuria, Denies urinary frequency and Denies urinary urgency Musc Denies numbness and Denies tingling Neuro Reports Abnormal speech present, Denies vertigo, Denies dizziness, Denies headache(s), Denies loss of vision, Denies numbness and Denies tingling Emiliano/Lymph Denies easy bleeding and Denies easy bruising Aller/Immun Denies wheezing Physical exam (Primary Care) Vital Signs: Last Vital Signs Temp 97.3 F 09/17/24 10:41 Pulse 67 09/17/24 10:41 BP 130/70 09/17/24 10:41 Pulse Ox 96 09/17/24 10:41 Oxygen Delivery Method Room Air 09/17/24 10:41 BMI result Body Mass Index 25.7 Tobacco/Smoking Status: Tobacco use Status Tobacco use date assessed 09/17/24 09/17/24 10:45 Patient Tobacco Use Status Never used Tobacco 09/17/24 10:45 Tobacco use type Cigarette 09/17/24 10:45 e-Cigarette/Vaping Use Never Used 09/17/24 10:45 Thrive Assessment: Date of Thrive Assessment Date Thrive assessed 07/19/24 09/17/24 10:45 Currently or been in a relationship where the following occur: No concerns reported Const General: healthy appearing, no acute distress, alert and awake Nutritional Appearance: well nourished Orientation/consciousness: oriented to person, oriented to place and oriented to time HENMT Ears: TM's normal bilaterally General nose exam: Normal nasal mucous membranes and turbinates present Eyes Conjunctivae: conjunctivae normal Sclerae: sclerae normal Pupils: Equal, round and reactive pupils present Neck Neck: Yes no lymphadenopathy and Yes no JVD Thyroid: Thyroid normal Carotids: no bruits Resp Effort & Inspection: normal respiratory effort and not tachypneic Auscultation: no crackles, no rales, no rhonchi and no wheezes Cardio Rate: regular rate Rhythm: regular rhythm Heart sounds: no murmurs and normal S1 and S2 GI Palpation (GI): Soft to palpation, nontender, no hepatomegaly and no splenomegaly Auscultation: normal bowel sounds General: Yes no CVA tenderness Back/Spine/Pelvis Back: no CVA tenderness Skin General skin exam: no rashes or lesions noted and dry skin Neuro General: oriented to person, oriented to place and oriented to time Cranial nerves: Yes Equal, round and reactive pupils present Speech: Abnormal speech present Gait exam (Neuro): Normal gait present Motor exam (neuro): no tremor noted Extrem Right upper extremity: full ROM Left upper extremity: full ROM Right lower extremity: full ROM; no edema Left lower extremity: full ROM; no edema Coding Level of Care Code TCM Mod MDM <= 14 Days Diagnoses Chest pain, unspecified type R07.9 Chest pain type: unspecified Elevated liver enzymes R74.8 Hypercholesterolemia E78.00 Time Spent (min) 36 Assessment & Plan Assessment & Plan (1) Chest pain: Code(s): R07.9 - Chest pain, unspecified Category: Medical Qualifiers: Chest pain type: unspecified Qualified Code(s): R07.9 - Chest pain, unspecified Plan: The patient went to the ER with complaints of right side chest pain that radiated down his right arm. All his labs and ekg were not supportive of an ischemic event. He is high risk to his strong family hx of heart disease and his high cholesterol. He was tried on statin in the past and was not able to tolerate this medication. His liver enzymes are elevated which is complicating the option of trying him on another statin. He will be following up with cardiology on October, to possibly discuss repatha. The patient was encouraged to complete his liver profile prior this appt to aid the decision making. (2) Elevated liver enzymes: Code(s): R74.8 - Abnormal levels of other serum enzymes Category: Medical Plan: Reports that he already stopped drinking alcohol after his discharge from the hospital. Refrain from products containing acetaminophen and refrain from high cholesterol foods. (3) Hypercholesterolemia: Code(s): E78.00 - Pure hypercholesterolemia, unspecified Category: Medical Plan: Discussed lifestyle modifications including dietary changes and physical activity
[2024-09-17 10:41] VITALS: BP 130/70; PULSE 67; TEMP 36.3; O2SAT 96; BMI 25.7
--- OUTSIDE RECORDS SUMMARY | 2024-09-17 11:53 | XMS_ITS | Clinical Summary ---
Author Organization [facility] Address [address] [place] [phone] Phone Care Team Providers Care Chief Wharfinger Name Role Phone Trevon Diez MD Primary Care Provider [phone] Allergies No known active allergies Medications No [...] age to complete this topic Insurance [address] [place] [address] Care Teams Chief Wharfinger Relationship Specialty Start Date End Date Trevon Diez MD [address] [facility] [place] [address] PCP - General 11/22/23
== END 2024-09-17 11:08 | disposition home or self-care (01) ==
LOC: HO.HMCH 10:36
PROVIDERS: PCP Internal Medicine
DX: R07.9 Chest pain, unspecified (principal); R74.8 Abnormal levels of other serum enzymes; E78.00 Pure hypercholesterolemia, unspecified

== ENCOUNTER → 2024-09-17 10:35 | Outpatient (BNVA) | payer OTHER, SELFPAY | PROVIDERS: PCP Internal Medicine | DX: Z13.89 Encounter for screening for other disorder (principal) ==

== ENCOUNTER 2024-09-29 09:16 | Outpatient (REF) | payer OTHER, SELFPAY ==
[2024-09-29 09:36] LABS: MANUAL DIFF FLAG NO
[2024-09-29 10:23] LABS: Basophils Percent Auto 0.6 % (0-2); Eosinophils Absolute Auto 0.1 X10*3/uL (0.0-0.4); Eosinophils Percent Auto 1.3 % (0-4); Hematocrit 45.4 % (42.0-52.0); Hemoglobin 15.4 g/dl (14.0-18.0); Imm Gran Abs Auto 0.01 X10*3/uL (0.00-0.03); Imm Gran Pct Auto 0.2 % (0.0-0.4); Immature Retic Fraction 5.8 % (2.3-13.4); Lymphocytes Absolute Auto 1.7 X10*3/uL (1.2-4.9); Lymphocytes Percent Auto 26.1 % (20-40); Mean Corpuscular HGB Conc 33.9 g/dl (31.0-36.0); Mean Corpuscular Volume 88.3 fL (80.0-98.0); Monocytes Absolute Auto 0.9 X10*3/uL (0.1-1.2); Monocytes Percent Auto 14.3 % (2-11); Neutrophils Absolute Auto 3.7 x10*3/uL (2.0-8.3); Neutrophils Percent Auto 57.5 % (45-73); Platelet Count 194 X10*3/uL (160-400); Red Blood Count 5.14 X10*6/uL (4.60-5.80); Red Cell Distribution Width 11.9 % (11.0-16.0); Retic HGB Equivalent 35.7 pg (30.0-35.0); Reticulocytes Absolute 0.049 X10*6/uL (0.026-0.095); White Blood Count 6.4 X10*3/uL (4.8-10.8)
[2024-09-29 10:24] LABS: Estimated Average Glucose 114 mg/dL; Hemoglobin A1c % 5.6 % (<6.0)
[2024-09-29 11:16] LABS: Alanine Aminotransferase 57 U/L (0-40); Albumin Level 4.7 g/dL (3.5-5.0); Alkaline Phosphatase 75 U/L (39-117); Anion Gap 13 (12-20); Aspartate Amino Transferase 46 U/L (5-37); Bilirubin Total 0.5 mg/dL (0.0-1.0); Blood Urea Nitrogen 16 mg/dL (9-16); Calcium 9.7 mg/dL (8.4-10.2); Carbon Dioxide 27 mmol/L (22-29); Chloride 102 mmol/L (96-108); Cholesterol 245 mg/dL (<200); Estimated Glomerular Filt Rate > 60; Glucose Random 87 mg/dL (60-115); HDL Cholesterol 50 mg/dL (>40); Iron 111 mcg/dL (45-160); LDL Cholesterol Calculated 160 mg/dL (<100); Percent Iron Saturation 36 % (15-50); Potassium 4.7 mmol/L (3.3-5.1); Sodium 137 mmol/L (135-145); Total Iron Binding Capacity 306 mcg/dL (228-428); Total Protein 8.2 g/dL (6.5-8.0); Triglycerides 178 mg/dL (<150); Unsaturated Iron Binding 195 ug/dL
[2024-09-29 11:19] LABS: Ferritin 588 ng/mL (20-250); Free T4 (Free Thyroxine) 0.79 ng/dL (0.71-1.85); Thyroid Stimulating Hormone 1.89 uIU/mL (0.32-4.0); Vitamin D 25-OH Total 41.9 ng/mL (>30)
[2024-09-29 11:23] LABS: Cortisol Random 10.4 ug/dL
[2024-09-29 11:34] LABS: Folate 13.5 ng/mL (> or = 4.0); Prostate Specific Antigen Scr 0.66 ng/mL (<0.05-4.0); Vitamin B12 758 pg/mL (200-900)
[2024-10-04 00:59] LABS: Testosterone, Total 563 ng/dL (250-1100)
== END 2024-09-29 09:17 | disposition home or self-care (01) ==
LOC: HO.LAB 09:16
PROVIDERS: PCP Internal Medicine; Visit Provider Family Medicine
DX: M81.0 Age-related osteoporosis without current pathological fracture (principal); R73.02 Impaired glucose tolerance (oral); E78.00 Pure hypercholesterolemia, unspecified; Z12.5 Encounter for screening for malignant neoplasm of prostate
CPT/HCPCS: 36415; 80053; 80061; 82306; 82533; 82607; 82728; 82746; 83036; 83540; 84153; 84403; 84439; 84443; 85025; 85045

== ENCOUNTER 2024-10-03 12:36 | Outpatient (AMB) | payer OTHER, SELFPAY ==
--- NOTE | 2024-10-03 12:43 | A.OFFVIS_ITS ---
Vital Signs 10/03/24 12:44 Height 5 ft 1 in Weight 134 lb 7.712 oz BMI 25.4 BP 118/66 Blood Pressure Location Lt brachial Position Sitting Pulse 69 Pulse Source Pulse Oximeter Intake Visit Reasons: 4 to 6 week f/up Allergies simvastatin Adverse Reaction (Intermediate, Verified 09/17/24 10:55) myalgia Medication List - Last Reconciled 10/03/24 by Warner Ribera MD evolocumab (Repatha SureClick) 140 mg subcut Q2W HPI Comments Details: Carlos returns for follow-up. Recently seen in the in the hospital in consultation. History of dyslipidemia but not on statins because of prior intolerance. He was admitted to the hospital for complaints of right-sided chest pain. That led to further workup. Of note, patient had a recent calcium scoring CT scan just within the few days prior to admission. Hence not clear if it was anxiety causing the hospitalization. That calcium score was positive. Any case, he underwent an echocardiogram/stress test which were unremarkable and then he was discharged home. He states for the most part he is feeling fine. No clear-cut cardiac symptoms. Extremely active with no limitations. [facility] Medical History Near syncope Colon cancer screening Nose fracture Hypercholesterolemia Surgical History Ankle fracture, right H/O left inguinal hernia repair Family History Father Melanoma Myocardial infarct Maternal Grandfather Myocardial infarct Paternal Grandfather CVA (cerebral vascular accident) Social History Housing: House Alcohol intake: current Comment: 2 days weekend 5-6 a day, 07/2024- 3 days week 2 drinks each Patient Tobacco Use Status: Never used Tobacco Tobacco use type: Cigarette e-Cigarette/Vaping Use: Never Used Second Hand Smoke Exposure: No Advance Directives Date on File: 09/06/24 service: No Current occupational status: employed Cognitive needs: No Hearing needs: No Vision needs: No Review of Systems Const Denies weakness ENT Denies dizziness Card Denies chest pain, Denies chest pain with activity, Denies syncope, Denies rapid heart rate, Denies pedal edema, Denies edema, Denies leg edema, Denies lightheadedness, Denies palpitations, Denies dyspnea, Denies dyspnea on exertion and Denies orthopnea Resp Denies cough, Denies dyspnea and Denies dyspnea on exertion GI Denies hematochezia and Denies change in stool character Musc Denies abnormal gait, Denies muscle cramps, Denies muscle weakness, Denies numbness, Denies radiating pain into limb and Denies tingling Neuro Denies abnormal gait, Denies dizziness, Denies syncope, Denies numbness, Denies tingling and Denies weakness Endo Denies palpitations Physical Exam Vital Signs: Last Vital Signs Pulse 69 10/03/24 12:44 BP 118/66 10/03/24 12:44 BMI result Body Mass Index 25.4 Const General: comfortable and no acute distress Orientation/consciousness: patient oriented x3 HEENT Other: Unremarkable Head: Yes normal to inspection Neck Neck: Yes normal visual inspection Chest Chest palpation & inspection: normal inspection of the chest Resp Auscultation: clear to auscultation bilaterally Cardio Palpation: normal PMI Heart sounds: S1 normal heart sound present, S2 normal heart sound present, no gallops, no murmurs and no rubs GI Palpation (GI): Soft to palpation Back/Spine/Pelvis Other: unremarkable Skin General skin exam: no rashes or lesions noted Neuro General: patient oriented x3 Extrem General: Yes normal to inspection Psych Mental Status: mental status grossly normal Assessment & Plan Assessment & Plan (1) Atherosclerotic cardiovascular disease: Code(s): I25.10 - Atherosclerotic heart disease of [place] coronary artery without angina pectoris Category: Medical (2) Hypercholesterolemia: Code(s): E78.00 - Pure hypercholesterolemia, unspecified Category: Medical (3) Statin intolerance: Code(s): Z78.9 - Other specified health status Category: Medical (4) Abnormal LFTs: Code(s): R79.89 - Other specified abnormal findings of blood chemistry Category: Medical Plan Cardiac studies reviewed. Coronary calcium score is 405 distributed between the LAD, circumflex, right coronary and minimally in the left main. In the echocardiogram, LVEF is 67%. Otherwise unremarkable. Exercise myocardial perfusion imaging study negative at 16.4 METS. Elevated cholesterol levels and slightly abnormal liver enzymes. History of statin intolerance. He can start taking Repatha. We can recheck lipids in 2-3 months and reassess. Patient is interested in further assessment of coronary disease burden and hence we will do a coronary CTA. Liver enzyme abnormality could be related to alcohol excess. Hence needs to cut back on that. Healthy lifestyle. We will see him in about 3 months or so with a CT scan. Repeat lipids should be obtained prior to that. Discussion Notes I discussed with the patient the importance of managing elevated cholesterol and the role of Repatha in achieving this goal. We also talked about the coronary CT scan with IV dye to further evaluate atherosclerosis, addressing his concerns about radiation exposure and explaining the procedure's safety. The patient was advised to maintain his healthy lifestyle and was informed about the follow-up plan in three months to monitor progress. Patient was informed and verbally consented to the use of an ambient scribe for clinic note documentation during this visit. Orders: Orders CT Cardiac Coronary Angio Today I25.10 - Atherosclerotic heart disease of [place] coronary artery without angina pectoris Basic Metabolic Panel Today I25.10 - Atherosclerotic heart disease of [place] coronary artery without angina pectoris Lipid Panel 3 Months E78.00 - Pure hypercholesterolemia, unspecified Patient Instructions: - Start Repatha as soon as it becomes available. - Continue regular exercise and maintain a healthy diet. - Attend the scheduled coronary CT scan with IV dye when arranged. - Follow up in three months for reassessment. Coding Level of Care Code Est Pt Level 4 (75618) Complex EM visit Add On G2211 Diagnoses Atherosclerotic cardiovascular disease I25.10 Hypercholesterolemia E78.00 Statin intolerance Z78.9 Abnormal LFTs R79.89
[2024-10-03 12:44] VITALS: BP 118/66; PULSE 69; BMI 25.4
--- OUTSIDE RECORDS SUMMARY | 2024-10-03 13:05 | XMS_ITS | Clinical Summary ---
Author Organization [facility] Address [address] [place] [phone] Phone Care Team Providers Care Correctional Supply Supervisor Name Role Phone Trevon Diez MD Primary Care Provider [phone] Allergies No known active allergies Medications No [...] 71 03/22/2024 10:27 AM EST Temperature 36.3 C (97.4 F) 03/22/2024 10:27 AM EST Respiratory Rate - - Oxygen Saturation 98% [...] age to complete this topic Insurance [address] [place] [address] Care Teams Correctional Supply Supervisor Relationship Specialty Start Date End Date Trevon Diez MD [address] [facility] [place] [address] PCP - General 11/22/23
--- OUTSIDE RECORDS SUMMARY | 2024-10-03 13:05 | XMS_ITS | Clinical Summary ---
Author Organization [facility] Address [address] [place] [address] Care Team Providers Care Newspaper Carrier Name Role Phone Trevon Diez MD Primary Care Provider [phone] Allergies No known active allergies Medications Medication [...] 56 12/13/2023 8:57 AM EDT Temperature 36.4 C (97.6 F) 12/13/2023 8:57 AM EDT Respiratory Rate - - Oxygen Saturation 100% [...] (1 of 2) 2019 Influenza Vaccine (#1) 2024 RSV Ped < 20 months Aged Out No longe r eligible based on patient's age to complete this topic Care Teams Newspaper Carrier Relationship Specialty Start Date End Date Trevon Diez MD [address] [place] [address] Dr [address] [facility] [place] [address] PCP - General Internal Medicine 11/22/23
== END 2024-10-03 13:16 | disposition home or self-care (01) ==
LOC: HO.HCS 12:37
PROVIDERS: PCP Internal Medicine; Visit Provider Internal Medicine
DX: I25.10 Atherosclerotic heart disease of native coronary artery without angina pectoris (principal); E78.00 Pure hypercholesterolemia, unspecified; Z78.9 Other specified health status; R79.89 Other specified abnormal findings of blood chemistry
CPT/HCPCS: 99214; G2211

== ENCOUNTER 2024-10-03 12:50 | Outpatient (REF) | payer OTHER, SELFPAY ==
[2024-10-03 13:50] LABS: Creatinine, mg/dL 49.89
[2024-10-03 14:06] LABS: Total Volume 24 Hour Urine 2875 mL
[2024-10-06 02:24] LABS: Calcium/Creatinine Ratio 163 mg/g creat (30-210); Creatinine 24Hr Urine 1.61 g/24 h (0.50-2.15)
== END 2024-10-03 12:51 | disposition home or self-care (01) ==
LOC: HO.LNP 12:50
PROVIDERS: Visit Provider Internal Medicine Endocrinology, Diabetes & Metabolism
DX: M81.0 Age-related osteoporosis without current pathological fracture (principal)
CPT/HCPCS: 82340; 82570

== ENCOUNTER 2024-10-09 10:39 | Outpatient (AMB) | payer OTHER, SELFPAY ==
--- NOTE | 2024-10-09 10:41 | MHC.OFFVIS ---
Vital Signs 10/09/24 10:44 Height 5 ft 1.02 in Weight 140 lb 10.479 oz BMI 26.6 BP 92/66 Blood Pressure Location Lt brachial Position Sitting Pulse 62 Pulse Source Pulse Oximeter Pulse Oximetry (%) 97 Oxygen Delivery Method Room Air Intake Visit Reasons: Oseporosis Intake Note: Patient present today for Osteoporosis follow up. Aircraft Power Plant Assembler Required: No Accompanied by: Self / Same As Patient Allergies simvastatin Adverse Reaction (Intermediate, Verified 10/09/24 10:45) myalgia Medication List - Last Reconciled 10/09/24 by Fantasma Ku MD evolocumab (Repatha SureClick) 140 mg subcut Q2W HPI Comments Details: 54 YO male with is seen in consultation at the request of PCP for Osteoporosis. First diagnosed in recently. Osteopenia in past . Has appt at [facility] in [place] but did not go . Not Received treatment in the past No History of pathologic fracture or ONJ. Has several servings of dietary calcium per day in the form of milk . Takes Calcium supplement ? mg daily in divided doses. Takes 2000 IU of Vitamin D daily. Denies ever using PPI, anticoagulant, antiepileptic or glucocorticoid medication. Does weight bearing exercise 2 days per week in the form of weight bearing lifting . Fracture history: N Height loss: Y Denies history of Kidney stones: Has family history of Osteoporosis in mother but no hip fracture. UTD on dental cleanings and sees dentist every 6 months. No planned upcoming dental work or extractions. DXA dated 05/17/23 :AP SPINE L1-L4: Current: BMD 0.907 g/cm2, Z-score -2.0, T-score -2.6, osteoporosis, 6.8% decrease from previous, 7.2% decrease from baseline (<5% change is not significant). Prior: BMD 0.973 g/cm2. Baseline: BMD 0.977 g/cm2. IDENTIFIED RISK FACTORS: History of fracture (adult). HISTORY OF FRACTURE: Other. MEDICATIONS: Multivitamin, vitamin D. MM/XR DEXA axial skeleton IMPRESSION: 1. DIAGNOSIS: Osteoporosis based on the lowest T-score value of -2.6 in the lumbar spine applying World Health Organization criteria. Labs: The patient is a 54-year-old male presenting for management of osteoporosis and coronary artery disease. The patient has a history of osteoporosis, which was previously discussed with plans to visit [facility] for further evaluation, but the trip was canceled due to personal reasons. He has undergone urine and blood tests, including TSH, testosterone, and cortisol levels, which were completed in September. Protein electrophoresis and immunofixation were ordered but not completed. The patient reports a coronary artery calcium score of 505, indicating significant coronary artery disease. He has stopped taking supplements and modified his diet accordingly. The patient is not currently taking calcium or vitamin D supplements, although dietary intake of calcium is recommended to reach 1200 mg daily. COUNTS INCLUDE 234 BEDS AT THE [facility] Medical History Near syncope Colon cancer screening Nose fracture Hypercholesterolemia Surgical History Ankle fracture, right H/O left inguinal hernia repair Family History Father Melanoma Myocardial infarct Maternal Grandfather Myocardial infarct Paternal Grandfather CVA (cerebral vascular accident) Social History Housing: House Alcohol intake: current Comment: 2 days weekend 5-6 a day, 07/2024- 3 days week 2 drinks each Patient Tobacco Use Status: Never used Tobacco Tobacco use type: Cigarette e-Cigarette/Vaping Use: Never Used Second Hand Smoke Exposure: No Advance Directives Date on File: 09/06/24 service: No Current occupational status: employed Cognitive needs: No Hearing needs: No Vision needs: No Physical Exam Vital Signs: Last Vital Signs Pulse 62 10/09/24 10:44 BP 92/66 10/09/24 10:44 Pulse Ox 97 10/09/24 10:44 Oxygen Delivery Method Room Air 10/09/24 10:44 BMI result Body Mass Index 26.6 Assessment & Plan Assessment & Plan (1) Osteoporosis: Comment: May 2023 Code(s): M81.0 - Age-related osteoporosis without current pathological fracture Category: Medical Plan: This is a 54-year-old white male with a history of osteoporosis. Partial secondary workup has been performed including testosterone level which was normal and thyroid function studies Plan is to complete the secondary workup by checking a , SPEP, urine immunofixation. We will ensure 1200 mg of calcium per day and vitamin D3 2000 IU per day. Assuming secondary workup is negative, we will repeat DEXA bone density preferentially with TBS to determine whether pharmacologic therapy as necessary Orders: Orders XR DEXA axial skeleton Today M81.0 - Age-related osteoporosis without current pathological fracture Coding Level of Care Code Est Pt Level 3 (24727) Diagnoses Osteoporosis M81.0
[2024-10-09 10:44] VITALS: BP 92/66; PULSE 62; O2SAT 97; BMI 26.6
--- OUTSIDE RECORDS SUMMARY | 2024-10-09 11:38 | XMS_ITS | Clinical Summary ---
Author Organization [facility] Address [address] [place] [address] Care Team Providers Care Job Checker Name Role Phone Trevon Diez MD Primary Care Provider [phone] Allergies No known active allergies Medications Medication [...] age to complete this topic Care Teams Job Checker Relationship Specialty Start Date End Date Trevon Diez MD [address] [place] [address] Dr [address] [facility] [place] [address] PCP - General Internal Medicine 11/22/23
--- OUTSIDE RECORDS SUMMARY | 2024-10-09 11:38 | XMS_ITS | Clinical Summary ---
Author Organization [facility] Address [address] [place] [id number] Phone Care Team Providers Care Manager Of Business Name Role Phone Trevon Diez MD Primary Care Provider [phone] Allergies No known active allergies Medications No [...] Years (1 of 2 - PCV) 1988 Zoster Vaccines (1 of 2) 1988 COVID-19 Vaccine (2 - Jansse n risk series) 12/29/2020 12/01/2020 Cholesterol Screening (Lipid Panel) 03/13/2022 Depression Screening 03/13/2022 HIV Screening 03/13/2022 Hepatitis C Screening 03/13/2022 Social Influencers of Health Screening 03/13/2022 Influenza Vaccine (#1) 2024 Colorectal Cancer Screening: FIT-DNA (Cologuard) 06/01/2026 [...] patient's age to complete this topic Insurance Care Teams Manager Of Business Relationship Specialty Start Date End Date Trevon Diez MD [address] [facility] [address] [facility] [place] [address] PCP - General 11/22/23
== END 2024-10-09 11:23 | disposition home or self-care (01) ==
LOC: HO.ENCR 10:40
PROVIDERS: PCP Internal Medicine; Visit Provider Internal Medicine Endocrinology, Diabetes & Metabolism
DX: M81.0 Age-related osteoporosis without current pathological fracture (principal)
CPT/HCPCS: 99213

== ENCOUNTER 2024-10-09 11:22 | Outpatient (REF) | payer OTHER, SELFPAY ==
[2024-10-10 22:18] LABS: Prot Elec - Albumin 4.3 g/dL (3.8-4.8); Prot Elec - Alpha1 0.3 g/dL (0.2-0.3); Prot Elec - Alpha2 0.6 g/dL (0.5-0.9); Prot Elec - Beta 1 0.4 g/dL (0.4-0.6); Prot Elec - Beta 2 0.4 g/dL (0.2-0.5); Prot Elec - Gamma 1.4 g/dL (0.8-1.7); Prot Elec - Total Protein 7.4 g/dL (6.1-8.1)
== END 2024-10-09 11:23 | disposition home or self-care (01) ==
LOC: HO.10HDL 11:22
PROVIDERS: Visit Provider Internal Medicine Endocrinology, Diabetes & Metabolism
DX: M81.0 Age-related osteoporosis without current pathological fracture (principal)
CPT/HCPCS: 84165; 86335

== ENCOUNTER 2024-12-08 08:53 | Outpatient (REF) | payer OTHER, SELFPAY ==
--- OUTSIDE RECORDS SUMMARY | 2024-12-08 08:56 | XMS_ITS | Clinical Summary ---
Author Organization [facility] Address [address] [place] [address] Phone Care Team Providers Care Medieval English Literature Professor Name Role Phone Trevon Diez MD Primary Care Provider [phone] Allergies No known active allergies Medications No known medications Active Problems Problem Noted Date Diagnosed Date Basal cell carcinoma of skin 07/07/2016 Overview (02/16/2024): Low back - ED&C Left chest - ED&C Forehead - surgical excision Encounters Date Type Department Care Team Description 11/01/2024 Telephone [facility] - [address] [phone] Rochelle Angel PA from Last 3 Months Social History Tobacco Use Types Packs/Day Years [...] 12/29/2020 12/01/2020 Cholesterol Screening (Lipid Panel) 03/13/2022 HIV Screening 03/13/2022 Hepatitis C Screening 03/13/2022 Social Influencers of Health Screening 03/13/2022 Depression Screening 04/04/2024 Influenza Vaccine (#1) 2024 Colorectal Cancer Screening: [...] patient's age to complete this topic Insurance [facility] [address] [place] [address] Care Teams Medieval English Literature Professor Relationship Specialty Start Date End Date Trevon Diez MD [address] [facility] [address] [facility] [place] [address] PCP - General 11/22/23
--- OUTSIDE RECORDS SUMMARY | 2024-12-08 08:56 | XMS_ITS | Clinical Summary ---
Author Organization [facility] Address [address] [place] [address] [place] [phone] Phone Care Team Providers Care Linotype Mechanic Name Role Phone Trevon Diez MD Primary Care Provider Allergies Active Allergy Reactions Criticality Noted Date Comments Latex 10/03/2021 Medications aspirin 81 mg chewable tablet Take 1 tablet by mouth every morning. 09/07/2024 Active folic acid (FOLVITE) 1 MG tablet Take 1 mg by mouth daily. 12/13/2023 Active Active Problems No known active problems Encounters Date Type Department Care Team Description 09/19/2024 9:00 AM EDT Office Visit [facility] at [address] [id number] Lauren Nye PA-C Acute bacterial conjunctivitis of right eye (Primary Dx) from Last 3 Months Social History Tobacco Use Types Packs/Day Years Used Date Smoking Tobacco: Never Smokeless Tobacco: Never Tobacco Cessation:Counseling Given: Not Answered Education Answer Date Recorded Are you interested in more education? Not on juan r e 07/31/2022 Are you concerned about learning? Not on file 07/31/2022 No 07/31/2022 No 07/31/2022 Digital Access Answer Date Recorded No 08/29/2022 No 08/29/2022 Reliable internet access at home? Not on file 08/29/2022 Device with a working camera? Not on file Sex and Gender Information Value Date Recorded Sex Assigned at Not on file Legal Sex Male 1:02 PM EDT Gender Identity Not on file Sexual Orientation Not on file Last Filed Vital Signs Vital Sign Reading Time Taken Comments Blood Pressure 124/82 09/19/2024 8:57 AM EDT Pulse 60 09/19/2024 8:57 AM EDT Temperature 36.7 C (98 F) 09/19/2024 8:57 AM EDT Respiratory Rate 16 09/19/2024 8:57 AM EDT Oxygen Saturation 98% 09/19/2024 8:57 AM EDT Inhaled Oxygen Concentration - - Weight 62.6 kg (138 lb) 09/19/2024 8:57 AM EDT Height 157.5 cm (5' 2 ) 09/19/2024 8:57 AM EDT Body Mass Index 25.24 09/19/2024 8:57 AM EDT Plan of Treatment Health Maintenance Due Date Last Done Comments LIPID PANEL 1969 DEPRESSION SCREENING 1981 HEPATITIS C SCREENING 1987 HIV ONE-TIME SCREENING (18-6 5 YEARS) 1987 SCREENING FOR DIABETES 2004 COLONOSCOPY 2014 FIT TEST 2014 FOBT 2014 SIGMOIDOSCOPY 2014 VIRTUAL COLONOSCOPY 2014 PNEUMOCOCCAL VACCINES (50+ y ears) (1 of 1 - PCV) 2019 ZOSTER VACCINES (1 of 2) 2019 INFLUENZA VACCINE (#1) 2024 COVID-19 VACCINE (2 - 2024-2 6 season) 2024 12/01/2020 COLOGUARD 06/01/2026 06/01/2023 COLORECTAL CANCER SCREENING 06/01/2026 Adult Td,Tdap Booster 04/15/2030 04/15/2020 SMOKING STATUS SCREENING (On ce After 26 Yrs) Completed 09/19/2024 HEPATITIS A VACCINES Aged Out No long er eligible based on patient's age to complete this topic HIB VACCINES Aged Out No longer eligi ble based on patient's age to complete this topic MENINGOCOCCAL VACCINES (ACWY) Aged Out No longer eligible based on patient's age to complete this topic MENINGOCOCCAL VACCINES (B) Aged Out N o longer eligible based on patient's age to complete this topic Medical Devices Not on file Insurance [address] [place], [place] [address]O [facility] [address] [place] [place] [address] [place], [place] [address] [address] [place] [place] [address] [place], [place] [address]O [facility] [place] [address] Care Teams Linotype Mechanic Relationship Specialty Start Date End Date Trevon Diez MD [address] [facility] [address] [place] [phone] PCP - General Internal Medicine 10/03/21 Additional Source Comments The information contained in this document represents components of the legal health record. It is not the complete legal health record.[facility]
--- OUTSIDE RECORDS SUMMARY | 2024-12-08 08:56 | XMS_ITS | Clinical Summary ---
Author Organization [facility] Address [address] [place] [address] Care Team Providers Care Dry House Wheeler Name Role Phone Trevon Diez MD Primary Care Provider [phone] Allergies No known active allergies Medications Medication [...] age to complete this topic Care Teams Dry House Wheeler Relationship Specialty Start Date End Date Trevon Diez MD [address] [place] [address] [address] [facility] [place] [address] PCP - General Internal Medicine 11/22/23
[2024-12-08 10:52] LABS: Alanine Aminotransferase 39 U/L (0-40); Albumin Level 4.6 g/dL (3.5-5.0); Alkaline Phosphatase 80 U/L (39-117); Anion Gap 13 (12-20); Aspartate Amino Transferase 43 U/L (5-37); Blood Urea Nitrogen 15 mg/dL (9-16); Calcium 9.1 mg/dL (8.4-10.2); Carbon Dioxide 26 mmol/L (22-29); Chloride 104 mmol/L (96-108); Estimated Glomerular Filt Rate > 60; Potassium 4.2 mmol/L (3.3-5.1); Sodium 139 mmol/L (135-145); Total Protein 7.7 g/dL (6.5-8.0)
== END 2024-12-08 08:54 | disposition home or self-care (01) ==
LOC: HO.LAB 08:53
PROVIDERS: Family Medicine; PCP Internal Medicine; Visit Provider Internal Medicine
DX: I25.10 Atherosclerotic heart disease of native coronary artery without angina pectoris (principal); R74.8 Abnormal levels of other serum enzymes
CPT/HCPCS: 36415; 80048; 80076

== ENCOUNTER 2025-01-10 13:08 | Outpatient (AMB) | payer OTHER, SELFPAY ==
--- NOTE | 2025-01-10 13:14 | A.OFFVIS_ITS ---
Vital Signs 01/10/25 13:16 Height 5 ft 1.02 in Weight 143 lb 4.807 oz BMI 27.1 BP 118/64 Blood Pressure Location Lt brachial Position Sitting Pulse 68 Pulse Source Pulse Oximeter Intake Visit Reasons: 3m follow up/ CTA Speech Therapist Early Intervention Required: No Accompanied by: Self / Same As Patient Allergies simvastatin Adverse Reaction (Intermediate, Verified 10/09/24 10:45) myalgia Medication List - Last Reconciled 01/10/25 by Warner Ribera MD evolocumab (Repatha SureClick) 140 mg subcut Q2W HPI Comments Details: Carlos returns for follow-up. Recently seen in the in the hospital in consultation. History of dyslipidemia but not on statins because of prior into lerance. He was admitted to the hospital for complaints of right-sided chest pain. That led to further workup. Of note, patient had a recent calcium scoring CT scan just within the few days prior to admission. Hence not clear if it was anxiety causing the hospitalization. That calcium score was positive. Any case, he underwent an echocardiogram/stress test which were unremarkable and then he was discharged home. He states for the most part he is feeling fine. No clear-cut cardiac symptoms. Extremely active with no limitations. [facility] Medical History Near syncope Colon cancer screening Nose fracture Hypercholesterolemia Surgical History Ankle fracture, right H/O left inguinal hernia repair Family History Father Melanoma Myocardial infarct Maternal Grandfather Myocardial infarct Paternal Grandfather CVA (cerebral vascular accident) Social History Housing: House Alcohol intake: current Comment: 2 days weekend 5-6 a day, 07/2024- 3 days week 2 drinks each Patient Tobacco Use Status: Never used Tobacco Tobacco use type: Cigarette e-Cigarette/Vaping Use: Never Used Second Hand Smoke Exposure: No Advance Directives Date on File: 09/06/24 service: No Current occupational status: employed Cognitive needs: No Hearing needs: No Vision needs: No Review of Systems Const Denies chills, Denies fatigue, Denies fever(s), Denies frequent falls, Denies weakness, Denies weight gain and Denies weight loss ENT Denies dizziness Card Denies chest pain, Denies leg edema, Denies lightheadedness, Denies palpitations, Denies dyspnea and Denies dyspnea on exertion Resp Denies cough, Denies dyspnea and Denies dyspnea on exertion GI Denies hematochezia Musc Denies abnormal gait, Denies muscle weakness, Denies numbness, Denies radiating pain into limb and Denies tingling Neuro Denies abnormal gait, Denies dizziness, Denies frequent falls, Denies numbness, Denies tingling and Denies weakness Endo Denies fatigue and Denies palpitations Physical Exam Vital Signs: Last Vital Signs Pulse 68 01/10/25 13:16 BP 118/64 01/10/25 13:16 BMI result Body Mass Index 27.1 Const General: comfortable and no acute distress Orientation/consciousness: patient oriented x3 HEENT Other: Unremarkable Head: Yes normal to inspection Neck Neck: Yes normal visual inspection Chest Chest palpation & inspection: normal inspection of the chest Resp Auscultation: clear to auscultation bilaterally Cardio Palpation: normal PMI Heart sounds: S1 normal heart sound present, S2 normal heart sound present, no gallops, no murmurs and no rubs GI Palpation (GI): Soft to palpation Back/Spine/Pelvis Other: unremarkable Skin General skin exam: no rashes or lesions noted Neuro General: patient oriented x3 Extrem General: Yes normal to inspection Psych Mental Status: mental status grossly normal Assessment & Plan Assessment & Plan (1) Atherosclerotic cardiovascular disease: Code(s): I25.10 - Atherosclerotic heart disease of [place] coronary artery without angina pectoris Category: Medical (2) Hypercholesterolemia: Code(s): E78.00 - Pure hypercholesterolemia, unspecified Category: Medical (3) Statin intolerance: Code(s): Z78.9 - Other specified health status Category: Medical (4) Abnormal LFTs: Code(s): R79.89 - Other specified abnormal findings of blood chemistry Category: Medical Plan Cardiac studies reviewed. Coronary calcium score is 405 distributed between the LAD, circumflex, right coronary and minimally in the left main. Coronary CTA with minimal disease in the LAD, circumflex and mild disease in the right coronary artery. In the echocardiogram, LVEF is 67%. Otherwise unremarkable. Exercise myocardial perfusion imaging study negative at 16.4 METS. Overall, dyslipidemia, statin intolerance, mild coronary disease, slightly abnormal liver enzymes. He is now on Repatha and lipids significantly improved. LDL 44 mg/dL. Triglycerides 147 mg/dL. Liver enzyme abnormality could be related to alcohol excess and he needs to work on that. Otherwise, we will follow up in one year. He will call us with any interim concerns. Coding Level of Care Code Est Pt Level 4 (76240) Diagnoses Atherosclerotic cardiovascular disease I25.10 Hypercholesterolemia E78.00 Statin intolerance Z78.9 Abnormal LFTs R79.89
[2025-01-10 13:16] VITALS: BP 118/64; PULSE 68; BMI 27.1
== END 2025-01-10 13:27 | disposition home or self-care (01) ==
LOC: HO.HCS 13:08
PROVIDERS: PCP Internal Medicine; Visit Provider Internal Medicine
DX: I25.10 Atherosclerotic heart disease of native coronary artery without angina pectoris (principal); E78.00 Pure hypercholesterolemia, unspecified; Z78.9 Other specified health status; R79.89 Other specified abnormal findings of blood chemistry
CPT/HCPCS: 99214